=== PATIENT | male | born 1935 | race African-American/Black ===

== ENCOUNTER 2016-05-08 11:39 | Emergency (ER) | payer MEDICARE, MEDICAID ==
[~2016-05-08] VITALS: Ht 177.8 cm; Wt 81.6 kg
[2016-05-08] MEDS ORDERED: cefTRIAXone 1 GM in NS 55 ML IVPB ONE (12:30)
[2016-05-08 12:51] LABS: O2 CONTENT VENOUS 83.7
[2016-05-08] MEDS ORDERED: Tubing IV Secondary IV ONE (13:08)
[2016-05-08] MEDS ORDERED: Tubing IV Cassette IV ONE (13:08)
[2016-05-08] MEDS ORDERED: NS 55 ML IV ONE (13:08)
[2016-05-08 13:29] LABS: BASOPHILS % (AUTO) 1.2 % (0.0-2.0); EOSINOPHILS % (AUTO) 2.2 % (0.0-3.0); LYMPHOCYTES % (AUTO) 20.8 % (20.0-45.0); MEAN CORPUSCULAR HEMOGLOBIN 31.8 PG (27.0-31.0); MEAN CORPUSCULAR HGB CONC 30.5 G/DL (32.0-36.0); MEAN CORPUSCULAR VOLUME 104 FL (80-99); MEAN PLATELET VOLUME 5.8 FL (6.5-10.1); MONOCYTES % (AUTO) 11.3 % (1.0-10.0); NEUTROPHILS % (AUTO) 64.5 % (45.0-75.0); PLATELET COUNT 249 K/UL (150-450); RED BLOOD COUNT 2.86 M/UL (4.70-6.10); RED CELL DISTRIBUTION WIDTH 12.5 % (11.6-14.8); WHITE BLOOD COUNT 6.5 K/UL (4.8-10.8)
[2016-05-08 13:30] VITALS: BP 132/81
[2016-05-08 13:44] LABS: ALANINE AMINOTRANSFERASE 9 U/L (3-41); ALBUMIN/GLOBULIN RATIO 0.7 (1.0-2.7); ANION GAP 18 (5-15); ASPARTATE AMINO TRANSFERASE 9 U/L (5-40); CALCIUM 8.7 mg/dL (8.6-10.2); CARBON DIOXIDE 18 mEQ/L (20-30); CHLORIDE 105 mEQ/L (98-107); HEMOLYSIS 1; POTASSIUM 5.9 mEQ/L (3.4-4.9); SODIUM 141 mEQ/L (135-145); TOTAL PROTEIN 7.7 g/dL (6.6-8.7)
--- NOTE | 2016-05-08 14:19 | Diagnostic Imaging Report ---
Indication: Left mastoiditis. External otitis Technique: Contiguous 5 mm thick transaxial imaging of the head obtained in a Siemens Sensation [address] scanner. Soft tissue and bone windows generated. Total Dose length Product (DLP): [address] Dose Index Volume (CTDIvol): 70.38 mGy Comparison: none Findings: There is mild prominence of the ventricles, basal cisterns, and cerebral sulci consistent with atrophy. Mild, nonspecific, white matter hypoattenuation is noted throughout the brain consistent with chronic small vessel disease. There is no midline shift, edema, acute hemorrhage, mass effect, or abnormal extra-axial fluid collections. Bones and extra osseous soft tissues are unremarkable. There is left mastoid opacification and ethmoid sinus opacification. Impression: No acute intracranial bleed, mass effect or edema. Mild atrophy of the brain. Nonspecific white matter hypoattenuation probably due to chronic small vessel disease. Left mastoiditis and sinusitis The CT scanner at [facility] is accredited by the [employer] and the scans are performed using protocols designed to limit radiation exposure to as low as reasonably achievable to attain images of sufficient resolution adequate for diagnostic evaluation.
[2016-05-08] MEDS ORDERED: ASPIRIN81 MG ORAL (15:44)
[2016-05-08] MEDS ORDERED: CARBAMAZEPINE300 MG ORAL (15:44)
[2016-05-08] MEDS ORDERED: ATIVAN1 MG ORAL (15:44)
[2016-05-08] MEDS ORDERED: ATENOLOL100 MG ORAL (15:44)
[2016-05-08] MEDS ORDERED: ACETAMINOP500 MG/51 ORAL (15:44)
[2016-05-08] MEDS ORDERED: COMBIGAN EYE DRO5 ML OP (15:48)
[2016-05-08] MEDS ORDERED: DOCUSATE SODIU100 MG ORAL (15:48)
[2016-05-08] MEDS ORDERED: CORTISPORIN EAR10 ML LEFT EAR (15:48)
[2016-05-08] MEDS ORDERED: FERROUS SULFAT325 MG ORAL (15:50)
[2016-05-08] MEDS ORDERED: EPOGEN4000 UNIT/ SUBQ (15:50)
[2016-05-08] MEDS ORDERED: TRUSOPT10 ML BOTH EYES (15:50)
[2016-05-08] MEDS ORDERED: PROSCAR5 MG ORAL (15:50)
[2016-05-08] MEDS ORDERED: LEVAQUIN500 MG ORAL (15:51)
[2016-05-08] MEDS ORDERED: HYDRALAZINE HCL50 MG ORAL (15:51)
[2016-05-08] MEDS ORDERED: LATANOPROST2.5 ML BOTH EYES (15:51)
[2016-05-08] MEDS ORDERED: MULTIPLE VITAM1 EAC5 PO (15:53)
[2016-05-08] MEDS ORDERED: OMEPRAZOLE20 M3 ORAL (15:53)
[2016-05-08] MEDS ORDERED: NIFEDIPINE ER30 MG ORAL (15:53)
[2016-05-08] MEDS ORDERED: FLOMAX0.4 MG ORAL (15:53)
[2016-05-08] MEDS ORDERED: RISPERDAL1 MG PO (15:53)
--- NOTE | 2016-05-08 16:16 | Emergency Room Report ---
History of Present Illness General Chief Complaint: Fever Source: Medical Record Present Illness HPI [facility] for complaint of fever, possible cough, drainage from the left ear. Times today's. Patient's primary care doctor, Dr. Armendariz, reported that the patient was notably febrile to 100.4 yesterday. And he had some ear drainage. The patient received by mouth antibiotics times one dose, Levaquin. The patient's baseline is significant psychiatric, schizophrenia with severe renal dysfunction and anemia. He himself does not complain of significant abnormalities, he does describe some pain in his left ear. Denies chest pain, shortness of breath. Allergies: Coded Allergies: No Known Allergies (Unverified , 05/08/16) Patient History Past Medical History: see triage record, dementia, psych hx, renal disease PSxH Narrative patient is in SNF psychiatric facility at baseline Social History: Denies: alcohol use, drug use, smoking Immunizations: UTD Reviewed Nursing Documentation: PMH: Agreed Nursing Documentation-PMH Past Medical History: No History, Except For Hx Cardiac Problems: Yes Hx Hypertension: Yes Hx Pacemaker: No - CKD, ANEMIA, BPH, GLAUCOMA, Hx Gastrointestinal Problems: Yes - PEPTIC ULCER Review of Systems Constitutional: Reports: fever ENT: Reports: ear discharge All Other Systems: limited - patient is not good historian Physical Exam Vital Signs Date Time Temp Pulse Resp B/P Pulse Ox O2 Delivery O2 Flow Rate FiO2 05/08/16 11:50 98.4 63 18 182/87 96 Room Air Sp02 EP Interpretation: reviewed General Appearance: alert, cachetic, thin, Chronically Ill Eyes: bilateral eye PERRL ENT: other - significant purulent and bloody discharge from the left ear. TM obscured by Debri Neck: supple, thyroid normal Respiratory: chest non-tender, lungs clear, normal breath sounds Cardiovascular #1: regular rate, rhythm, no edema Gastrointestinal: non tender, soft, no mass Genitourinary: no CVA tenderness Musculoskeletal: back normal Neurologic: alert, responsive, telesales team leader III-XII nml as tested, motor weakness, other - patient does have signs of contracture in upper extemities Medical Decision Making Diagnostic Impression: Primary Impression: Fever Additional Impressions: mastoiditis sinusitis otitis media Hyperkalemia Dehydration Anemia Chronic renal disease, stage 4, severely decreased glomerular filtration rate ( GFR) between 15-29 mL/min/1.73 square meter ER Course Patient evaluated by myself and noted significant drainage from left ear. CT scan of the head was performed which did demonstrate sinusitis, mastoiditis. Blood work was evaluated and I noted significant renal dysfunction with mild hyperkalemia. Patient received IV ceftriaxone in the emergency department as well as IV fluids for rehydration. I spoke twice with Dr. Armendariz, his on-call primary DrRicky who was familiar with the patient. He states patient's renal status is stable to include intermittent hyperkalemia. He appreciates the IV antibiotics and IV fluids. He feels that the patient would be safe for continued treatment at his jail facility with IV antibiotics which is itchy the bullet that facility. Patient be transferred back to the facility with IV in place. Laboratory Tests Test 05/08/16 12:40 05/08/16 12:45 White Blood Count 6.5 K/UL (4.8-10.8) Red Blood Count 2.86 M/UL (4.70-6.10) L Hemoglobin 9.1 G/DL (14.2-18.0) L Hematocrit 29.8 % (42.0-52.0) L Mean Corpuscular Volume 104 FL (80-99) H Mean Corpuscular Hemoglobin 31.8 PG (27.0-31.0) H Mean Corpuscular Hemoglobin Concent 30.5 G/DL (32.0-36.0) L Red Cell Distribution Width 12.5 % (11.6-14.8) Platelet Count 249 K/UL (150-450) Mean Platelet Volume 5.8 FL (6.5-10.1) L Neutrophils (%) (Auto) 64.5 % (45.0-75.0) Lymphocytes (%) (Auto) 20.8 % (20.0-45.0) Monocytes (%) (Auto) 11.3 % (1.0-10.0) H Eosinophils (%) (Auto) 2.2 % (0.0-3.0) Basophils (%) (Auto) 1.2 % (0.0-2.0) Sodium Level 141 mEQ/L (135-145) Potassium Level 5.9 mEQ/L (3.4-4.9) H Chloride Level 105 mEQ/L (98-107) Carbon Dioxide Level 18 mEQ/L (20-30) L Anion Gap 18 (5-15) H Blood Urea Nitrogen 68 mg/dL (7-23) H Creatinine 4.0 mg/dL (0.7-1.2) H Estimat Glomerular Filtration Rate mL/min (>60) Glucose Level 96 mg/dL (74-106) Calcium Level 8.7 mg/dL (8.6-10.2) Total Bilirubin 0.2 mg/dL (0.0-1.2) Aspartate Amino Transf (AST/SGOT) 9 U/L (5-40) Alanine Aminotransferase (ALT/SGPT) 9 U/L (3-41) Alkaline Phosphatase 68 U/L (40-129) Total Protein 7.7 g/dL (6.6-8.7) Albumin 3.3 g/dL (3.5-5.2) L Globulin 4.4 g/dL Albumin/Globulin Ratio 0.7 (1.0-2.7) L Venous Blood pH Pending Venous Blood Partial Pressure CO2 Pending Venous Blood Partial Pressure O2 Pending Venous Blood HCO3 Pending Venous Blood Total Carbon Dioxide Pending Venous Bld O2 Saturation (Measured) 83.7 Venous Blood Oxygen Saturation Pending Venous Blood Base Excess Pending Methemoglobin 0.4 Sodium (Blood Gas) Pending Rhythm Strip Diag. Results Rhythm Strip Time: 12:55 EP Interpretation: yes Rate: 88 Rhythm: NSR, no PVC's, no ectopy Chest X-Ray Diagnostic Results Time: 14:30 Findings: no consolidation, no effusion, no pneumothorax Number of Views: 1 CT/MRI/US Diagnostic Results CT/MRI/US Diagnostic Results : Imaging Test Ordered: cT brain, auditory canal Impression CT read as no acute intercranial process, noted sinusitis on left, mastoiditis on left. Reevaluation Time: 15:30 Last Vital Signs Date Time Temp Pulse Resp B/P Pulse Ox O2 Delivery O2 Flow Rate FiO2 05/08/16 13:30 93 20 132/81 95 Room Air 05/08/16 12:00 98.1 Status: improved Disposition: XFER SNF Condition: Stable Referrals: ABBY ROSS (PCP) Patient Instructions: Sinusitis, Adult, [id number], Fever, Adult, Mastoiditis , Pediatric Additional Instructions: Please followup with primary doctor for continued treatment. Brigido Buck MD May 08, 2016 16:16
[2016-05-08 16:29] VITALS: BP 161/88
--- NOTE | 2016-05-08 17:12 | Diagnostic Imaging Report ---
Indication: Chest Pain Comparison: None A single view chest radiograph was obtained. Findings: Cardiomediastinal appearance is within normal limits for age. Pulmonary vascularity is appropriate. The diaphragmatic contour is smooth and costophrenic angles are sharp. No pleural effusions are identified. The bones are unremarkable. Impression: No acute findings
[2016-05-08 17:48] VITALS: BP 168/72
[2016-05-08 17:52] VITALS: BP 168/72
--- NOTE | 2016-06-13 09:49 | Diagnostic Imaging Report ---
Indication: Left mastoiditis and infection Technique: Continuous helical transaxial imaging of the temporal bones. No IV contrast was administered. High resolution coronal and axial 2-D reformats were also obtained. Study obtained in a Siemens sensation [address] Total Dose length Product (DLP): [address] Dose Index Volume (CTDIvol): 44 mGy Comparison: None Findings: There is abnormal opacification of the left external auditory canal. The tympanic membrane is not seen. Findings may be on the basis of external otitis infection. There is also extensive opacification of the left mastoid air cells. Findings consistent with an acute left mastoiditis. In addition there is abnormal opacification of the middle ear canal, likely fluid surrounding the ossicles and consistent with otitis media there is no ossicle erosion or other osseous erosion. The scutum is intact. The in a year structures are normal including the vestibule, semicircular canals, cochlea. IAC canal, facial nerve canal, carotid and jugular fossa is appear normal. TMJ is unremarkable. Limited evaluation of the right ureter is unremarkable. Impression: Left otitis media and acute mastoiditis. Insertion of external otitis as well given opacification of the external canal. These correlate clinically. .
== END 2016-05-08 17:52 ==
LOC: EDBD 11:39 → EDUNIT# 11:39 → EMR 12:50
DX: R50.9 Fever, unspecified (principal); H70.92 Unspecified mastoiditis, left ear; J01.90 Acute sinusitis, unspecified; H66.90 Otitis media, unspecified, unspecified ear; E87.5 Hyperkalemia; E86.0 Dehydration; D64.9 Anemia, unspecified; N18.4 Chronic kidney disease, stage 4 (severe); Z87.11 Personal history of peptic ulcer disease; I10 Essential (primary) hypertension
CPT/HCPCS: 36415; 70450; 70480; 71010; 80053; 85025; 96360; 96361; 96374; 99284; J0696

== ENCOUNTER 2016-05-21 20:19 | Inpatient (IN) | payer MEDICAID, MEDICARE ==
[~2016-05-21] VITALS: Ht 172.7 cm; Wt 71.7 kg
[~2016-05-21 20:19] MED LIST: ACETAMINOP500 MG/51 ORAL; ASPIRIN81 MG ORAL; ATENOLOL100 MG ORAL; ATIVAN1 MG ORAL; CARBAMAZEPINE300 MG ORAL; COMBIGAN EYE DRO5 ML OP; CORTISPORIN EAR10 ML LEFT EAR; DOCUSATE SODIU100 MG ORAL; EPOGEN4000 UNIT/ SUBQ; FERROUS SULFAT325 MG ORAL; FLOMAX0.4 MG ORAL; HYDRALAZINE HCL50 MG ORAL; LATANOPROST2.5 ML BOTH EYES; LEVAQUIN500 MG ORAL; MULTIPLE VITAM1 EAC5 PO; NIFEDIPINE ER30 MG ORAL; OMEPRAZOLE20 M3 ORAL; PROSCAR5 MG ORAL; RISPERDAL1 MG PO; TRUSOPT10 ML BOTH EYES
[2016-05-21 20:25] VITALS: BP 158/81
--- NOTE | 2016-05-21 20:58 | Emergency Room Report ---
History of Present Illness General Chief Complaint: Abnormal Labs Source: Patient, EMS Present Illness HPI Patient was sent in from nursing facility with complaints of low hemoglobin count Patient has been generally weak He has underlying dementia and not appropriate historian This does limit the history of present illness significantly There is no reports of vomiting or diarrhea No reports of any blood in the stool Patient himself denies any abdominal pain at this time unknown regarding previous transfusions Allergies: Coded Allergies: No Known Allergies (Unverified , 05/08/16) Patient History Past Medical History: see triage record Pertinent Family History: none Reviewed Nursing Documentation: PMH: Agreed, PSxH: Agreed Nursing Documentation-PMH Hx Cardiac Problems: Yes Hx Hypertension: Yes Hx Pacemaker: No - CKD, ANEMIA, BPH, GLAUCOMA, Hx Gastrointestinal Problems: Yes - PEPTIC ULCER Review of Systems All Other Systems: limited - Other than the ones mentioned in the history of present illness all others are reviewed however they do stay limited due to the patient's mental status Physical Exam Vital Signs Date Time Temp Pulse Resp B/P Pulse Ox O2 Delivery O2 Flow Rate FiO2 05/21/16 20:08 97.9 78 16 158/81 98 Room Air Sp02 EP Interpretation: reviewed, normal General Appearance: no apparent distress Head: normocephalic, atraumatic Eyes: bilateral eye EOMI, bilateral eye PERRL ENT: hearing grossly normal, normal pharynx Neck: full range of motion, supple Respiratory: lungs clear, normal breath sounds Cardiovascular #1: normal peripheral pulses, regular rate, rhythm Gastrointestinal: non tender, soft Genitourinary: no CVA tenderness Musculoskeletal: normal inspection Neurologic: alert, responsive - Patient has some rambling of thought process Psychiatric: mood/affect normal Skin: normal color, no rash Medical Decision Making Diagnostic Impression: Primary Impression: Anemia in chronic kidney disease Additional Impression: CKD (chronic kidney disease) stage 5, GFR less than 15 ml/min ER Course The patient's history examined the presentation Patient is felt to be complex requiring blood work and imaging Patient's hemoglobin count is found to be dangerously low especially given the patient's symptomatic presentation and at this time admitted for further inpatient care Labs Test 05/22/16 11:29 05/22/16 17:00 05/23/16 06:55 05/23/16 14:39 White Blood Count 4.2 K/UL (4.8-10.8) Red Blood Count 2.52 M/UL (4.70-6.10) Hemoglobin 8.1 G/DL (14.2-18.0) Hematocrit 26.2 % (42.0-52.0) Mean Corpuscular Volume 104 FL (80-99) Mean Corpuscular Hemoglobin 32.0 PG (27.0-31.0) Mean Corpuscular Hemoglobin Concent 30.7 G/DL (32.0-36.0) Red Cell Distribution Width 13.7 % (11.6-14.8) Platelet Count 372 K/UL (150-450) Mean Platelet Volume 4.6 FL (6.5-10.1) Neutrophils (%) (Auto) 57.7 % (45.0-75.0) Lymphocytes (%) (Auto) 28.9 % (20.0-45.0) Monocytes (%) (Auto) 9.7 % (1.0-10.0) Eosinophils (%) (Auto) 2.2 % (0.0-3.0) Basophils (%) (Auto) 1.6 % (0.0-2.0) Sodium Level 138 mEQ/L (135-145) 142 mEQ/L (135-145) Potassium Level 5.5 mEQ/L (3.4-4.9) 5.3 mEQ/L (3.4-4.9) Chloride Level 104 mEQ/L (98-107) 109 mEQ/L (98-107) Carbon Dioxide Level 18 mEQ/L (20-30) 19 mEQ/L (20-30) Anion Gap 16 (5-15) 14 (5-15) Blood Urea Nitrogen 64 mg/dL (7-23) 57 mg/dL (7-23) Creatinine 3.7 mg/dL (0.7-1.2) 3.4 mg/dL (0.7-1.2) Estimat Glomerular Filtration Rate mL/min (>60) mL/min (>60) Glucose Level 113 mg/dL (74-106) 97 mg/dL (74-106) Hemoglobin A1c 4.7 % (< 6.0) Calcium Level 8.1 mg/dL (8.6-10.2) 7.7 mg/dL (8.6-10.2) Total Bilirubin < 0.2 mg/dL (0.0-1.2) < 0.2 mg/dL (0.0-1.2) Aspartate Amino Transf (AST/SGOT) 10 U/L (5-40) 11 U/L (5-40) Alanine Aminotransferase (ALT/SGPT) 7 U/L (3-41) 6 U/L (3-41) Alkaline Phosphatase 75 U/L (40-129) 67 U/L (40-129) Total Protein 6.9 g/dL (6.6-8.7) 6.3 g/dL (6.6-8.7) Albumin 3.0 g/dL (3.5-5.2) 2.8 g/dL (3.5-5.2) Globulin 3.9 g/dL 3.5 g/dL Albumin/Globulin Ratio 0.7 (1.0-2.7) 0.8 (1.0-2.7) Urine Random Sodium 67 mmol/L Urine Creatinine 53.5 mg/dL Pro-B-Type Natriuretic Peptide 1197 pg/mL (0-450) Iron Level 112 ug/dL (59-158) Total Iron Binding Capacity 164 ug/dL (250-400) Percent Iron Saturation 68 % (15-50) Unsaturated Iron Binding 52 ug/dL (112-346) Test 05/23/16 16:20 05/24/16 06:45 05/24/16 08:10 Stool Occult Blood Negative (NEGATIVE) Sodium Level 140 mEQ/L (135-145) Potassium Level 5.1 mEQ/L (3.4-4.9) Chloride Level 105 mEQ/L (98-107) Carbon Dioxide Level 20 mEQ/L (20-30) Anion Gap 15 (5-15) Blood Urea Nitrogen 49 mg/dL (7-23) Creatinine 2.9 mg/dL (0.7-1.2) Estimat Glomerular Filtration Rate mL/min (>60) Glucose Level 93 mg/dL (74-106) Calcium Level 7.7 mg/dL (8.6-10.2) Total Bilirubin < 0.2 mg/dL (0.0-1.2) Aspartate Amino Transf (AST/SGOT) 11 U/L (5-40) Alanine Aminotransferase (ALT/SGPT) 6 U/L (3-41) Alkaline Phosphatase 69 U/L (40-129) Total Protein 6.0 g/dL (6.6-8.7) Albumin 2.5 g/dL (3.5-5.2) Globulin 3.5 g/dL Albumin/Globulin Ratio 0.7 (1.0-2.7) White Blood Count 4.3 K/UL (4.8-10.8) Red Blood Count 2.29 M/UL (4.70-6.10) Hemoglobin 7.4 G/DL (14.2-18.0) Hematocrit 23.6 % (42.0-52.0) Mean Corpuscular Volume 103 FL (80-99) Mean Corpuscular Hemoglobin 32.2 PG (27.0-31.0) Mean Corpuscular Hemoglobin Concent 31.2 G/DL (32.0-36.0) Red Cell Distribution Width 13.6 % (11.6-14.8) Platelet Count 303 K/UL (150-450) Mean Platelet Volume 4.4 FL (6.5-10.1) Neutrophils (%) (Auto) % (45.0-75.0) Lymphocytes (%) (Auto) % (20.0-45.0) Monocytes (%) (Auto) % (1.0-10.0) Eosinophils (%) (Auto) % (0.0-3.0) Basophils (%) (Auto) % (0.0-2.0) Differential Total Cells Counted 100 Neutrophils % (Manual) 69 % (45-75) Lymphocytes % (Manual) 22 % (20-45) Monocytes % (Manual) 7 % (1-10) Eosinophils % (Manual) 1 % (0-3) Basophils % (Manual) 1 % (0-2) Band Neutrophils 0 % (0-8) Platelet Estimate Adequate Platelet Morphology Normal Hypochromasia 3+ Anisocytosis 1+ Macrocytosis 1+ EKG Diagnostic Results Rate: normal Rhythm: NSR ST Segments: no acute changes Rhythm Strip Diag. Results EP Interpretation: yes Rate: 67 Rhythm: NSR, no PVC's, no ectopy Last Vital Signs Date Time Temp Pulse Resp B/P Pulse Ox O2 Delivery O2 Flow Rate FiO2 05/21/16 20:25 97.9 84 16 158/81 98 Room Air Status: improved Disposition: ADMITTED INPATIENT Condition: Serious Referrals: ABBY ROSS (PCP) KAVIN DUQUE D.O. May 21, 2016 20:58
[2016-05-21 21:31] LABS: BASOPHILS % (AUTO) 1.6 % (0.0-2.0); EOSINOPHILS % (AUTO) 1.7 % (0.0-3.0); MEAN CORPUSCULAR HEMOGLOBIN 33.1 PG (27.0-31.0); MEAN CORPUSCULAR HGB CONC 31.5 G/DL (32.0-36.0); MEAN CORPUSCULAR VOLUME 105 FL (80-99); MEAN PLATELET VOLUME 4.7 FL (6.5-10.1); MONOCYTES % (AUTO) 10.6 % (1.0-10.0); NEUTROPHILS % (AUTO) 57.2 % (45.0-75.0); PLATELET COUNT 371 K/UL (150-450); RED BLOOD COUNT 2.51 M/UL (4.70-6.10); RED CELL DISTRIBUTION WIDTH 13.3 % (11.6-14.8); WHITE BLOOD COUNT 6.3 K/UL (4.8-10.8)
[2016-05-21 21:38] LABS: INR 1.1 (0.9-1.1); PROTHROMBIN TIME 10.8 SEC (9.30-11.50)
[2016-05-21 21:40] LABS: ALANINE AMINOTRANSFERASE 8 U/L (3-41); ALBUMIN/GLOBULIN RATIO 0.7 (1.0-2.7); ANION GAP 19 (5-15); ASPARTATE AMINO TRANSFERASE 11 U/L (5-40); CALCIUM 8.1 mg/dL (8.6-10.2); CARBON DIOXIDE 16 mEQ/L (20-30); CHLORIDE 101 mEQ/L (98-107); HEMOLYSIS 4; POTASSIUM 5.4 mEQ/L (3.4-4.9); SODIUM 136 mEQ/L (135-145); TOTAL PROTEIN 7.7 g/dL (6.6-8.7); TROPONIN I < 0.30 ng/mL (<=0.30)
[2016-05-21 21:50] LABS: CKMB 2.3 ng/mL (< 6.7)
[2016-05-21 22:43] VITALS: BP 147/83
[2016-05-22] VITALS (8 sets, daily range): BP systolic 129–159; BP diastolic 67–90
[2016-05-22] MEDS ORDERED: LORazepam 1mg tab ORAL PRN (03:45)
[2016-05-22] MEDS: NovoLOG Insulin Flexpen SUBQ SCH ×4 (06:01→20:18)
[2016-05-22] MEDS: Cefepime 500mg in D5W 55ml IVPB SCH (08:47)
[2016-05-22] MEDS: Heparin 5000 units/ml inj SUBQ SCH ×2 (08:48→20:15)
[2016-05-22] MEDS: Multivitamin w/Minerals tab ORAL SCH (08:48)
[2016-05-22] MEDS: HydrALAZINE 50mg tab ORAL SCH ×2 (08:49→20:15)
[2016-05-22] MEDS: Aspirin Baby 81mg ORAL SCH (08:49)
[2016-05-22] MEDS: Tamsulosin 0.4mg cap ORAL SCH (08:49)
[2016-05-22] MEDS ORDERED: Cefepime HCl 1 GM in D5W 55 ML IVPB SCH (09:00)
[2016-05-22] MEDS ORDERED: Levofloxacin 500mg tab ORAL SCH (09:00)
[2016-05-22] MEDS: Dorzolamide 2% Btl BOTH EYES SCH ×2 (09:49→17:17)
[2016-05-22 11:45] LABS: BASOPHILS % (AUTO) 1.6 % (0.0-2.0); EOSINOPHILS % (AUTO) 2.2 % (0.0-3.0); LYMPHOCYTES % (AUTO) 28.9 % (20.0-45.0); MEAN CORPUSCULAR HGB CONC 30.7 G/DL (32.0-36.0); MEAN CORPUSCULAR VOLUME 104 FL (80-99); MEAN PLATELET VOLUME 4.6 FL (6.5-10.1); MONOCYTES % (AUTO) 9.7 % (1.0-10.0); NEUTROPHILS % (AUTO) 57.7 % (45.0-75.0); PLATELET COUNT 372 K/UL (150-450); RED BLOOD COUNT 2.52 M/UL (4.70-6.10); RED CELL DISTRIBUTION WIDTH 13.7 % (11.6-14.8); WHITE BLOOD COUNT 4.2 K/UL (4.8-10.8)
[2016-05-22 11:56] LABS: ALANINE AMINOTRANSFERASE 7 U/L (3-41); ALBUMIN/GLOBULIN RATIO 0.7 (1.0-2.7); ANION GAP 16 (5-15); ASPARTATE AMINO TRANSFERASE 10 U/L (5-40); CALCIUM 8.1 mg/dL (8.6-10.2); CARBON DIOXIDE 18 mEQ/L (20-30); CHLORIDE 104 mEQ/L (98-107); CREATININE 3.7 mg/dL (0.7-1.2); HEMOLYSIS 1; POTASSIUM 5.5 mEQ/L (3.4-4.9); SODIUM 138 mEQ/L (135-145); TOTAL PROTEIN 6.9 g/dL (6.6-8.7)
[2016-05-22] MEDS: Sodium Bicarbonate 50 ML in 1/2 NS 1000ml 1,000 ML IV SCH (13:40)
[2016-05-22] MEDS: carBAMazepine 200mg tab ORAL SCH ×2 (13:41→17:17)
--- NOTE | 2016-05-22 17:08 | History and Physical Report ---
DATE OF ADMISSION: 05/21/2016 CHIEF COMPLAINT: Abnormal laboratories. HISTORY OF PRESENT ILLNESS: The patient is an 80-year-old male. He has multiple medical problems including a prior history of chronic kidney disease, anemia, coronary artery disease, seizure disorder, BPH, and diabetes, who was transferred from a detention facility with complaints of abnormal hemoglobin. The patient was noted to be severely anemic. He was transferred to the emergency room for further evaluation. There are no reports of any bleeding. No melena. No hematemesis. No bright red blood per rectum. On evaluation in the emergency room, hemoglobin was 8.3. Coagulations are normal. Potassium 5.4, bicarbonate 16, BUN is 66, and creatinine 4. The patient has been typed and crossed and now admitted for further evaluation for anemia as well as acute renal failure. PAST MEDICAL HISTORY: As above. PAST SURGICAL HISTORY: Unknown. MEDICATIONS: Current medications reconciled and reviewed. ALLERGIES: None. SOCIAL HISTORY: There is no known history of tobacco, ethanol, or drugs. FAMILY HISTORY: None. REVIEW OF SYSTEMS: Unobtainable, as the patient is confused. PHYSICAL EXAMINATION: GENERAL: The patient is in no apparent distress. VITAL SIGNS: Temperature 97.5 degrees, blood pressure 159/72, pulse of 69, and respirations 14. HEART: Regular rate and rhythm. LUNGS: Clear. ABDOMEN: Soft, nontender and nondistended. EXTREMITIES: Without clubbing, cyanosis, or edema. LABORATORY AND DIAGNOSTIC DATA: Sodium 136, potassium 5.4, bicarbonate 16, BUN of 66, and creatinine was 4. White count 6, hemoglobin 8.3, hematocrit of 26.4, and platelet count of 371,000. ASSESSMENT: This is a elderly male with multiple health problems, admitted with complaints of anemia. 1. Anemia, unclear etiology, suspect secondary to chronic kidney disease, cannot rule out a gastrointestinal bleed. 2. Acute renal failure. 3. Diabetes. 4. Hypertension. 5. History of seizure disorder. PLAN: IV hydration. Check a renal ultrasound. Monitor hemoglobin and hematocrit. Check iron studies and stool for occult blood. Continue outpatient and cardiac regimen. We will followup. Morning laboratories are currently pending. Fausto Uomoto, M.D. DR: CATHRYN JOB#: [id number] CC:
[2016-05-22] MEDS: Iron Sucrose 100 MG in NS 55 ML IVPB SCH (21:20)
[2016-05-22] MEDS: Sodium Citrate 30ml ORAL SCH (21:32)
[2016-05-23] VITALS: BP 122/57
[2016-05-23] MEDS: Sodium Bicarbonate 50 ML in 1/2 NS 1000ml 1,000 ML IV SCH ×3 (00:28→21:40)
--- NOTE | 2016-05-23 00:28 | Consultation ---
DATE OF CONSULTATION: REFERRING PHYSICIAN: Fausto Garay M.D. REASON FOR CONSULTATION: Elevated BUN and creatinine. HISTORY OF PRESENT ILLNESS: The patient is a resident of an [facility], has poor memory, seizure disorder, and cognitive impairment. He apparently has chronic kidney disease and anemia and it is not clear what his baseline renal function is, he had admission on potassium 5.4, BUN 66, creatinine 4. Hemoglobin of 8.3. PAST SURGICAL HISTORY: The patient denies history of any surgeries. ALLERGIES: None known. PAST MEDICAL HISTORY: Includes hypertension, anemia, thrombocytopenia, renal atrophy, diabetes type 2, atherosclerotic heart disease, benign prostatic hypertrophy, epilepsy, schizoaffective disorder, dysphagia, glaucoma, osteoarthritis, cataract, aphthous ulcers. MEDICATIONS: On transfer from the facility reviewed. In the hospital record include the following: Acetaminophen, aspirin, atenolol, Combigan eyedrops, carbamazepine, DSS, Trusopt eyedrops, Epogen, ferrous sulfate, Proscar, hydralazine, Xalatan, levofloxacin, lorazepam, multivitamins, nifedipine, omeprazole, Risperdal, tamsulosin. REVIEW OF SYSTEMS: The patient is an accurate historian. PHYSICAL EXAMINATION: GENERAL: The patient is lying in bed, alert, in no acute distress. VITAL SIGNS: Temperature 97.5, pulse 64, respirations 19, blood pressure 129/67. HEENT: Head eyes, ears, nose, throat, sclerae are nonicteric. Ocular motions intact in all directions. Oral mucosa moist. NECK: No adenopathy. LUNGS: Clear. HEART: Regular rhythm. No murmur. ABDOMEN: Soft without organomegaly or masses. EXTREMITIES: No edema, cyanosis, or clubbing. Contractures of both knees. NEUROLOGIC: He has weakness in both legs. Ocular motions intact in all directions. Mildly symmetric. Tongue is midline. He moves arms bilaterally. He answers simple questions but is disoriented. LABORATORY DATA: Admission labs are as above. Repeat BUN 64, creatinine 3.7, today potassium is 5.5, CO2 was 18, glucose 113. Albumin is 3.0. Total CK is 118. Urine electrolytes and urinalysis pending. IMPRESSION: 1. Chronic kidney disease likely stage 4 or 5. 2. Anemia of renal disease on Epogen as an outpatient likely an adequate dose and inadequate iron replacement. 3. Hypertensive heart disease. 4. Diabetes type 2. 5. Epilepsy. 6. Bedridden status. PLAN: At this time, we will observe his response to hydration and laboratories in the [facility] have been requested. We will get Epogen, iron, and adjust doses of all medications for his current problem. He is a poor candidate for dialysis and need to reassess in view of his dementia. Rory Falcon M.D. DR: Ivette JOB#: [id number] CC:
[2016-05-23 04:00] VITALS: BP 142/83
[2016-05-23] MEDS: NovoLOG Insulin Flexpen SUBQ SCH ×4 (06:30→21:00)
[2016-05-23 08:12] LABS: ALANINE AMINOTRANSFERASE 6 U/L (3-41); ALBUMIN/GLOBULIN RATIO 0.8 (1.0-2.7); ANION GAP 14 (5-15); ASPARTATE AMINO TRANSFERASE 11 U/L (5-40); CALCIUM 7.7 mg/dL (8.6-10.2); CARBON DIOXIDE 19 mEQ/L (20-30); CHLORIDE 109 mEQ/L (98-107); CREATININE 3.4 mg/dL (0.7-1.2); HEMOLYSIS 0; POTASSIUM 5.3 mEQ/L (3.4-4.9); SODIUM 142 mEQ/L (135-145); TOTAL PROTEIN 6.3 g/dL (6.6-8.7)
[2016-05-23 08:15] VITALS: BP 112/60
[2016-05-23] MEDS: HydrALAZINE 50mg tab ORAL SCH ×2 (09:00→21:46)
[2016-05-23] MEDS: Aspirin Baby 81mg ORAL SCH (10:15)
[2016-05-23] MEDS: Sodium Citrate 30ml ORAL SCH ×3 (10:15→17:41)
[2016-05-23] MEDS: Dorzolamide 2% Btl BOTH EYES SCH ×2 (10:16→17:40)
[2016-05-23] MEDS: Tamsulosin 0.4mg cap ORAL SCH (10:16)
[2016-05-23] MEDS: carBAMazepine 200mg tab ORAL SCH ×3 (10:16→17:42)
[2016-05-23] MEDS: Multivitamin w/Minerals tab ORAL SCH (10:16)
[2016-05-23] MEDS: Heparin 5000 units/ml inj SUBQ SCH ×2 (10:19→21:53)
[2016-05-23] MEDS: Cefepime 500mg in D5W 55ml IVPB SCH (10:33)
--- NOTE | 2016-05-23 11:19 | Diagnostic Imaging Report ---
Indication: Acute renal failure Technique: Grayscale and duplex images of the kidneys, retroperitoneum, and bladder were obtained. Comparison:None Findings: Exam is somewhat limited as patient is contracted. Right kidney measures 9.7 cm in length. Left kidney measures 8.4 cm in length. Both kidneys demonstrate mildly increased echogenicity. No hydronephrosis. No focal abnormality. Normal inferior vena cava. Bladder is normal. Impression: Negative arthrosis Mildly increased bilateral renal echogenicity, likely medical renal disease.
[2016-05-23 11:41] VITALS: BP 128/80
--- NOTE | 2016-05-23 13:53 | General Progress Note ---
Assessment/Plan Problem List: (1) Acute renal failure ICD Codes: N17.9 - Acute kidney failure, unspecified SNOMED: 72508951 (2) Anemia ICD Codes: D64.9 - Anemia, unspecified SNOMED: 310838081 (3) Fever ICD Codes: R50.9 - Fever, unspecified SNOMED: 989969663 (4) Abnormal laboratory test result ICD Codes: R89.9 - Unspecified abnormal finding in specimens from other organs , systems and tissues SNOMED: 103113097 Status: stable, progressing Assessment/Plan ivf monitor renal fxn monitor h/h check iron panel and stool ob. Subjective ROS Limited/Unobtainable: No Constitutional: Reports: malaise, weakness HEENT: Reports: no symptoms Cardiovascular: Reports: no symptoms Respiratory: Reports: no symptoms Gastrointestinal/Abdominal: Reports: no symptoms Genitourinary: Reports: no symptoms Neurologic/Psychiatric: Reports: no symptoms Endocrine: Reports: no symptoms Hematologic/Lymphatic: Reports: anemia Allergies: Coded Allergies: No Known Allergies (Unverified , 05/08/16) All Systems: reviewed and negative except above Subjective no complaints. no chest pain no sob. us negative. mild improvement in renal fxn. Objective Last 24 Hour Vital Signs Date Time Temp Pulse Resp B/P Pulse Ox O2 Delivery O2 Flow Rate FiO2 05/23/16 11:41 98.1 65 21 128/80 95 Room Air 05/23/16 10:17 72 112/60 05/23/16 09:00 112/60 05/23/16 09:00 72 112/60 05/23/16 08:15 97.9 72 20 112/60 100 Room Air 05/23/16 04:00 97.7 77 20 142/83 98 Room Air 05/23/16 00:00 97.9 64 20 122/57 96 Room Air 05/22/16 20:15 129/67 05/22/16 19:00 98.0 68 20 131/69 98 Room Air 05/22/16 16:00 97.5 64 19 129/67 100 Room Air 05/22/16 16:00 97.5 64 19 129/67 98 Room Air Bad tableLaboratory Tests 05/22/16 17:00: Urine Osmolality [Pending], Urine Random Sodium 67, Urine Creatinine 53.5 05/23/16 06:55: Sodium Level 142, Potassium Level 5.3H, Chloride Level 109H, Carbon Dioxide Level 19L, Anion Gap 14, Blood Urea Nitrogen 57H, Creatinine 3.4H, Estimat Glomerular Filtration Rate , Glucose Level 97, Calcium Level 7.7L, Total Bilirubin < 0.2, Aspartate Amino Transf (AST/SGOT) 11, Alanine Aminotransferase (ALT/SGPT) 6, Alkaline Phosphatase 67, Pro-B-Type Natriuretic Peptide 1197H, Total Protein 6.3L, Albumin 2.8L, Globulin 3.5, Albumin/Globulin Ratio 0.8L Height (Feet): 5 Height (Inches): 8.00 Weight (Pounds): 158 General Appearance: WD/WN, alert Neck: supple Cardiovascular: regular rhythm Respiratory/Chest: lungs clear, normal breath sounds, no respiratory distress Abdomen: normal bowel sounds, non tender, soft, no organomegaly, no mass Edema: no edema noted Arm (L), no edema noted Arm (R), no edema noted Leg (L), no edema noted Leg (R), no edema noted Pedal (L), no edema noted Pedal (R), no edema noted Generalized Neurologic: graduate engineer II-XII grossly normal, alert, oriented x 3, responsive CHUCK HAAS May 23, 2016 13:53
[2016-05-23 15:46] LABS: HEMOLYSIS 22; IRON 112 ug/dL (59-158); TOTAL IRON BINDING CAPACITY 164 ug/dL (250-400)
[2016-05-23 15:47] VITALS: BP 149/78
--- NOTE | 2016-05-23 16:07 | Nephrology Progress Note ---
Assessment/Plan Problem List: (1) Paraplegia (2) Epilepsy (3) Anemia in chronic kidney disease (4) CKD (chronic kidney disease) stage 5, GFR less than 15 ml/min Plan epogen and venofer, observe with hydration Subjective ROS Limited/Unobtainable: Yes Objective Objective Last 24 Hour Vital Signs Date Time Temp Pulse Resp B/P Pulse Ox O2 Delivery O2 Flow Rate FiO2 05/23/16 15:47 98.2 69 20 149/78 100 Room Air 05/23/16 11:41 98.1 65 21 128/80 95 Room Air 05/23/16 10:17 72 112/60 05/23/16 09:00 112/60 05/23/16 09:00 72 112/60 05/23/16 08:15 97.9 72 20 112/60 100 Room Air 05/23/16 04:00 97.7 77 20 142/83 98 Room Air 05/23/16 00:00 97.9 64 20 122/57 96 Room Air 05/22/16 20:15 129/67 05/22/16 19:00 98.0 68 20 131/69 98 Room Air Bad tableLaboratory Tests 05/22/16 17:00: Urine Osmolality [Pending], Urine Random Sodium 67, Urine Creatinine 53.5 05/23/16 06:55: Sodium Level 142, Potassium Level 5.3H, Chloride Level 109H, Carbon Dioxide Level 19L, Anion Gap 14, Blood Urea Nitrogen 57H, Creatinine 3.4H, Estimat Glomerular Filtration Rate , Glucose Level 97, Calcium Level 7.7L, Total Bilirubin < 0.2, Aspartate Amino Transf (AST/SGOT) 11, Alanine Aminotransferase (ALT/SGPT) 6, Alkaline Phosphatase 67, Pro-B-Type Natriuretic Peptide 1197H, Total Protein 6.3L, Albumin 2.8L, Globulin 3.5, Albumin/Globulin Ratio 0.8L 05/23/16 14:39: Iron Level 112, Total Iron Binding Capacity 164L, Percent Iron Saturation 68H, Unsaturated Iron Binding 52L Height (Feet): 5 Height (Inches): 8.00 Weight (Pounds): 158 General Appearance: no apparent distress, alert, confused EENT: normal ENT inspection Neck: normal alignment Cardiovascular: normal rate, regular rhythm Respiratory/Chest: lungs clear Abdomen: non tender Extremities: other - no edema Neurologic: [employer] member II-XII grossly normal XI FUENTES May 23, 2016 16:07
[2016-05-23 19:00] VITALS: BP 163/83
[2016-05-23] MEDS ORDERED: Epogen (for non ESRD use) SUBQ SCH ×2 (21:00)
[2016-05-23] MEDS: Iron Sucrose 100 MG in NS 55 ML IVPB SCH (21:42)
[2016-05-24] VITALS: BP 139/84
[2016-05-24 04:00] VITALS: BP 155/88
[2016-05-24] MEDS: NovoLOG Insulin Flexpen SUBQ SCH ×4 (06:30→22:57)
[2016-05-24] MEDS: Sodium Bicarbonate 50 ML in 1/2 NS 1000ml 1,000 ML IV SCH ×2 (06:51→17:36)
[2016-05-24 07:32] LABS: ALANINE AMINOTRANSFERASE 6 U/L (3-41); ALBUMIN/GLOBULIN RATIO 0.7 (1.0-2.7); ANION GAP 15 (5-15); ASPARTATE AMINO TRANSFERASE 11 U/L (5-40); CALCIUM 7.7 mg/dL (8.6-10.2); CARBON DIOXIDE 20 mEQ/L (20-30); CHLORIDE 105 mEQ/L (98-107); CREATININE 2.9 mg/dL (0.7-1.2); HEMOLYSIS 18; POTASSIUM 5.1 mEQ/L (3.4-4.9); SODIUM 140 mEQ/L (135-145)
--- NOTE | 2016-05-24 08:15 | General Progress Note ---
Assessment/Plan Problem List: (1) Acute renal failure ICD Codes: N17.9 - Acute kidney failure, unspecified SNOMED: 14997822 (2) Anemia ICD Codes: D64.9 - Anemia, unspecified SNOMED: 645303498 (3) Fever ICD Codes: R50.9 - Fever, unspecified SNOMED: 754053572 (4) Abnormal laboratory test result ICD Codes: R89.9 - Unspecified abnormal finding in specimens from other organs , systems and tissues SNOMED: 668904058 Status: stable, progressing Assessment/Plan ivf monitor renal fxn- improving monitor h/h follow up stool ob anemia - ?secondary to ckd +/- chronic disease Subjective ROS Limited/Unobtainable: No Constitutional: Reports: malaise, weakness HEENT: Reports: no symptoms Cardiovascular: Reports: no symptoms Respiratory: Reports: no symptoms Gastrointestinal/Abdominal: Reports: no symptoms Genitourinary: Reports: no symptoms Neurologic/Psychiatric: Reports: no symptoms Endocrine: Reports: no symptoms Hematologic/Lymphatic: Reports: anemia Allergies: Coded Allergies: No Known Allergies (Unverified , 05/08/16) All Systems: reviewed and negative except above Subjective no complaints. no chest pain renal infxn improving with hydration. stool ob pending. denies sob. Objective Last 24 Hour Vital Signs Date Time Temp Pulse Resp B/P Pulse Ox O2 Delivery O2 Flow Rate FiO2 05/24/16 04:00 98.8 76 18 155/88 100 Room Air 05/24/16 00:00 98.1 78 18 139/84 98 Room Air 05/23/16 21:46 163/83 05/23/16 19:00 97.7 64 20 163/83 98 Room Air 05/23/16 15:47 98.2 69 20 149/78 100 Room Air 05/23/16 11:41 98.1 65 21 128/80 95 Room Air 05/23/16 10:17 72 112/60 05/23/16 09:00 112/60 05/23/16 09:00 72 112/60 05/23/16 08:15 97.9 72 20 112/60 100 Room Air Intake and Output 05/23/16 05/24/16 19:00 07:00 Intake Total 1095 ml 920 ml Output Total 350 ml Balance 1095 ml 570 ml Intake Oral 440 ml 120 ml IV Total 655 ml 800 ml Other 350 ml # Voids 1 3 # Bowel Movements 3 Laboratory Tests 05/23/16 14:39: Iron Level 112, Total Iron Binding Capacity 164L, Percent Iron Saturation 68H, Unsaturated Iron Binding 52L 05/23/16 16:20: Stool Occult Blood [Pending] 05/24/16 06:45: Sodium Level 140, Potassium Level 5.1H, Chloride Level 105, Carbon Dioxide Level 20, Anion Gap 15, Blood Urea Nitrogen 49H, Creatinine 2.9H, Estimat Glomerular Filtration Rate , Glucose Level 93, Calcium Level 7.7L, Total Bilirubin < 0.2, Aspartate Amino Transf (AST/SGOT) 11, Alanine Aminotransferase (ALT/SGPT) 6, Alkaline Phosphatase 69, Total Protein 6.0L, Albumin 2.5L, Globulin 3.5, Albumin/Globulin Ratio 0.7L Height (Feet): 5 Height (Inches): 8.00 Weight (Pounds): 158 Objective General Appearance: WD/WN, alert Neck: supple Cardiovascular: regular rhythm Respiratory/Chest: lungs clear, normal breath sounds, no respiratory distress Abdomen: normal bowel sounds, non tender, soft, no organomegaly, no mass Edema: no edema noted Arm (L), no edema noted Arm (R), no edema noted Leg (L), no edema noted Leg (R), no edema noted Pedal (L), no edema noted Pedal (R), no edema noted 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
[2016-05-24 08:27] VITALS: BP 151/88
[2016-05-24 09:24] LABS: MEAN CORPUSCULAR HEMOGLOBIN 32.2 PG (27.0-31.0); MEAN CORPUSCULAR HGB CONC 31.2 G/DL (32.0-36.0); MEAN CORPUSCULAR VOLUME 103 FL (80-99); MEAN PLATELET VOLUME 4.4 FL (6.5-10.1); PLATELET COUNT 303 K/UL (150-450); RED BLOOD COUNT 2.29 M/UL (4.70-6.10); RED CELL DISTRIBUTION WIDTH 13.6 % (11.6-14.8); WHITE BLOOD COUNT 4.3 K/UL (4.8-10.8)
[2016-05-24] MEDS: Dorzolamide 2% Btl BOTH EYES SCH ×2 (10:27→19:33)
[2016-05-24] MEDS: Aspirin Baby 81mg ORAL SCH (10:28)
[2016-05-24] MEDS: HydrALAZINE 50mg tab ORAL SCH ×2 (10:29→22:55)
[2016-05-24] MEDS: Tamsulosin 0.4mg cap ORAL SCH (10:30)
[2016-05-24] MEDS: carBAMazepine 200mg tab ORAL SCH ×3 (10:30→19:34)
[2016-05-24] MEDS: Sodium Citrate 30ml ORAL SCH ×3 (10:31→19:34)
[2016-05-24] MEDS: Heparin 5000 units/ml inj SUBQ SCH ×2 (10:32→22:55)
[2016-05-24] MEDS: Multivitamin w/Minerals tab ORAL SCH (10:36)
[2016-05-24] MEDS: Cefepime 500mg in D5W 55ml IVPB SCH (10:36)
[2016-05-24 10:46] LABS: BASOPHILS % (MANUAL) 1 % (0-2); EOSINOPHILS % (MANUAL) 1 % (0-3); LYMPHOCYTES % (MANUAL) 22 % (20-45); NEUTROPHILS % (MANUAL) 69 % (45-75); TOTAL CELLS COUNTED 100
[2016-05-24 10:47] LABS: ANISOCYTOSIS 1+; BAND NEUTROPHILS % (MANUAL) 0 % (0-8); HYPOCHROMASIA 3+; MACROCYTES 1+; PLATELET ESTIMATE ADEQUATE
[2016-05-24 10:52] LABS: PLATELET MORPHOLOGY NORMAL
[2016-05-24 11:24] VITALS: BP 143/73
--- NOTE | 2016-05-24 14:07 | Cardiology Report ---
APPROVED REPORT EKG Measurement Heart [id number] Normal sinus rhythm Cannot rule out Anterior infarct, age undetermined Abnormal ECG
[2016-05-24 15:46] VITALS: BP 131/71
[2016-05-24 19:00] VITALS: BP 146/82
--- NOTE | 2016-05-24 22:06 | Nephrology Progress Note ---
Assessment/Plan Problem List: (1) Paraplegia (2) Epilepsy (3) Anemia in chronic kidney disease (4) CKD (chronic kidney disease) stage 5, GFR less than 15 ml/min Plan epogen and venofer, observe with hydration, downtrending bun and creatinine Subjective ROS Limited/Unobtainable: Yes Objective Objective Last 24 Hour Vital Signs Date Time Temp Pulse Resp B/P Pulse Ox O2 Delivery O2 Flow Rate FiO2 05/24/16 19:00 97.3 69 20 146/82 98 Room Air 05/24/16 15:46 97.5 69 20 131/71 98 Room Air 05/24/16 11:24 97.6 63 20 143/73 97 Room Air 05/24/16 10:30 79 151/88 05/24/16 10:29 151/88 05/24/16 10:29 79 151/88 05/24/16 08:27 97.9 79 20 151/88 97 Room Air 05/24/16 04:00 98.8 76 18 155/88 100 Room Air 05/24/16 00:00 98.1 78 18 139/84 98 Room Air Intake and Output 05/23/16 05/24/16 19:00 07:00 Intake Total 1095 ml 920 ml Output Total 350 ml Balance 1095 ml 570 ml Intake Oral 440 ml 120 ml IV Total 655 ml 800 ml Other 350 ml # Voids 1 3 # Bowel Movements 3 Laboratory Tests 05/24/16 06:45: Sodium Level 140, Potassium Level 5.1H, Chloride Level 105, Carbon Dioxide Level 20, Anion Gap 15, Blood Urea Nitrogen 49H, Creatinine 2.9H, Estimat Glomerular Filtration Rate , Glucose Level 93, Calcium Level 7.7L, Total Bilirubin < 0.2, Aspartate Amino Transf (AST/SGOT) 11, Alanine Aminotransferase (ALT/SGPT) 6, Alkaline Phosphatase 69, Total Protein 6.0L, Albumin 2.5L, Globulin 3.5, Albumin/Globulin Ratio 0.7L 05/24/16 08:10: White Blood Count 4.3L, Red Blood Count 2.29L, Hemoglobin 7.4L, Hematocrit 23.6L , Mean Corpuscular Volume 103H, Mean Corpuscular Hemoglobin 32.2H, Mean Corpuscular Hemoglobin Concent 31.2L, Red Cell Distribution Width 13.6, Platelet Count 303, Mean Platelet Volume 4.4L, Neutrophils (%) (Auto) , Lymphocytes (%) (Auto) , Monocytes (%) (Auto) , Eosinophils (%) (Auto) , Basophils (%) (Auto) , Differential Total Cells Counted 100, Neutrophils % ( Manual) 69, Lymphocytes % (Manual) 22, Monocytes % (Manual) 7, Eosinophils % ( Manual) 1, Basophils % (Manual) 1, Band Neutrophils 0, Platelet Estimate Adequate, Platelet Morphology Normal, Hypochromasia 3+, Anisocytosis 1+, Macrocytosis 1+ Height (Feet): 5 Height (Inches): 8.00 Weight (Pounds): 158 General Appearance: confused EENT: normal ENT inspection Neck: normal alignment Cardiovascular: normal rate, regular rhythm Respiratory/Chest: lungs clear Abdomen: soft, no organomegaly Extremities: trace edema Neurologic: motor weakness XI FUENTES May 24, 2016 22:06
[2016-05-24] MEDS: Iron Sucrose 100 MG in NS 55 ML IVPB SCH (22:54)
[2016-05-25] VITALS (7 sets, daily range): BP systolic 119–164; BP diastolic 61–93
--- NOTE | 2016-05-25 00:48 | Consultation ---
DATE OF CONSULTATION: 05/22/2016 CARDIOLOGY CONSULTATION: CONSULTING PHYSICIAN: Artem Byers M.D. REQUESTING PHYSICIAN: Fausto Garay M.D. REASON FOR CONSULTATION: Acute renal failure in the setting of hypertensive cardiomyopathy. HISTORY OF PRESENT ILLNESS: This is an 80-year-old male, residing at a [facility] facility. He was transferred to the emergency room for evaluation of abnormal laboratory studies. He was noted to have a history of hypertensive cardiomyopathy and congestive heart failure and I have been asked to address his current volume status and further management. PAST MEDICAL HISTORY: 1. Hypertension. 2. Hypertensive heart disease. 3. Diastolic dysfunction. 4. Coronary artery disease. 5. Anemia of chronic kidney disease. 6. Chronic kidney disease. 7. Seizure disorder. 8. Prostatic hypertrophy. 9. Cerebrovascular disease with dementia. MEDICATIONS: Reviewed and reconciled. ALLERGIES: None known. SOCIAL HISTORY: No record of smoking, alcohol, or substance abuse. FAMILY HISTORY: Noncontributory. REVIEW OF SYSTEMS: Not obtainable from the patient due to baseline dementia, however record review from the [facility] facility is performed and pertinent data has been outlined above. PHYSICAL EXAMINATION: GENERAL: The patient appears awake, alert, somewhat withdrawn, and in no acute distress. VITAL SIGNS: Blood pressure is 159/72, pulse 69, respiratory rate 14, and afebrile. HEENT: Conjunctivae are pink. Oropharynx is clear. NECK: Supple. Jugular venous pressure is normal. LUNGS: Clear. CARDIAC: Regular rhythm and rate. Normal S1 and S2 with a fourth heart sound. ABDOMEN: Soft and nontender. No hepatomegaly. EXTREMITIES: No edema. LABORATORY DATA: Sodium is 136, potassium 5.4, bicarbonate 16, BUN 66, and creatinine 4. White count is 6 and hemoglobin 8.3. DIAGNOSTIC DATA: EKG with sinus rhythm and possible anterior infarction of indeterminate age. Chest x-ray, no acute process. IMPRESSION: 1. Acute on chronic renal failure. 2. Acute on chronic anemia. 3. Chronic diastolic congestive heart failure. 4. Hypertensive heart disease. 5. Cerebrovascular disease with dementia. 6. Hyperkalemia. PLAN: 1. Hydrate with IV fluids. 2. Monitor cardiorenal parameters. 3. Trend natriuretic peptide assay. 4. Avoid angiotensin-converting enzyme inhibitors. 5. Deep venous thrombosis prophylaxis. 6. Renal ultrasound. 7. Echocardiogram. 8. Further recommendations to follow. Artem Byers M.D. DR: Neto JOB#: [id number] CC: ANTONIETA
--- NOTE | 2016-05-25 01:08 | Progress Note ---
DATE: 05/23/2016 CARDIOLOGY PROGRESS NOTE SUBJECTIVE: The patient is in no distress. He is more alert. He remains confused. OBJECTIVE: VITAL SIGNS: Blood pressure 128/80, pulse 65, and respirations 21. No fevers. HEENT: Capillary refill is slightly decreased. NECK: Supple. LUNGS: Clear. CARDIAC: Regular rhythm and rate. Normal S1 and S2 with a fourth heart sound. ABDOMEN: Soft. EXTREMITIES: With no edema. LABORATORY DATA: Sodium 142, potassium 5.3, bicarbonate 19, BUN 57, and creatinine 3.4. Pro-natriuretic peptide is 1197. Albumin is 2.8. IMPRESSION: 1. Acute on chronic renal injuries due to acute tubular necrosis. 2. Hyperkalemia. 3. Metabolic acidosis. 4. Moderate protein-calorie malnutrition. 5. Chronic diastolic congestive heart failure with elevated natriuretic peptide assay. 6. Hypertensive heart disease. 7. Cerebrovascular disease with dementia. PLAN: 1. Continue IV fluid hydration. 2. Protein supplement. 3. No role for diuretics. 4. Titrate antihypertensives and observe for orthostasis. 5. DVT prophylaxis. Artem Byers M.D. DR: DENA JOB#: [id number] CC:
--- NOTE | 2016-05-25 01:18 | Progress Note ---
DATE: 05/24/2016 CARDIOLOGY PROGRESS NOTE SUBJECTIVE: The patient is more alert. Baseline dementia noted. OBJECTIVE: VITAL SIGNS: Blood pressure 146/82, pulse 69, and respirations 20. NECK: Supple. LUNGS: Clear. CARDIAC: Regular rhythm and rate. Normal S1 and S2 with a fourth heart sound. ABDOMEN: Soft. EXTREMITIES: With trace edema. LABORATORY DATA: Iron panel yesterday was consistent with chronic disease. Sodium 140, potassium 5.1, BUN 49, creatinine 2.9, and bicarbonate 20. Albumin is 2.5. White count 4.3 and hemoglobin 7.4. IMPRESSION: 1. Anemia due to chronic kidney disease. 2. Acute on chronic renal failure, improving. 3. Chronic diastolic congestive heart failure. 4. Metabolic acidosis, recovering. 5. Severe protein-calorie malnutrition. 6. Hypertensive heart disease on multidrug regimen. PLAN: 1. Continue hydration. 2. Consider packed red blood cell transfusion. 3. Epogen therapy. 4. No diuresis. 5. Titrate antihypertensives. 6. Check stool occult blood test. 7. Monitor for orthostatic symptoms. Artem Byers M.D. DR: DENA JOB#: [id number] CC:
[2016-05-25] MEDS: Sodium Bicarbonate 50 ML in 1/2 NS 1000ml 1,000 ML IV SCH (04:07)
[2016-05-25] MEDS: NovoLOG Insulin Flexpen SUBQ SCH ×4 (06:30→20:16)
[2016-05-25 07:25] LABS: MEAN CORPUSCULAR HEMOGLOBIN 32.4 PG (27.0-31.0); MEAN CORPUSCULAR HGB CONC 30.8 G/DL (32.0-36.0); MEAN CORPUSCULAR VOLUME 105 FL (80-99); MEAN PLATELET VOLUME 4.7 FL (6.5-10.1); PLATELET COUNT 253 K/UL (150-450); RED BLOOD COUNT 2.09 M/UL (4.70-6.10); RED CELL DISTRIBUTION WIDTH 13.4 % (11.6-14.8); WHITE BLOOD COUNT 4.4 K/UL (4.8-10.8)
[2016-05-25 07:33] LABS: ANION GAP 13 (5-15); CALCIUM 7.6 mg/dL (8.6-10.2); CARBON DIOXIDE 25 mEQ/L (20-30); CHLORIDE 105 mEQ/L (98-107); CREATININE 2.8 mg/dL (0.7-1.2); HEMOLYSIS 0; POTASSIUM 5.3 mEQ/L (3.4-4.9); SODIUM 143 mEQ/L (135-145)
--- NOTE | 2016-05-25 08:20 | General Progress Note ---
Assessment/Plan Problem List: (1) Acute renal failure ICD Codes: N17.9 - Acute kidney failure, unspecified SNOMED: 24813254 (2) Anemia ICD Codes: D64.9 - Anemia, unspecified SNOMED: 356428040 (3) Fever ICD Codes: R50.9 - Fever, unspecified SNOMED: 807025777 (4) Abnormal laboratory test result ICD Codes: R89.9 - Unspecified abnormal finding in specimens from other organs , systems and tissues SNOMED: 101895778 Status: stable, progressing Assessment/Plan ivf monitor renal fxn- improving monitor h/h follow up stool ob anemia - ?secondary to ckd +/- chronic disease needs prbc transfusion today pt ok with it Subjective ROS Limited/Unobtainable: No Constitutional: Reports: malaise, weakness HEENT: Reports: no symptoms Cardiovascular: Reports: no symptoms Respiratory: Reports: no symptoms Gastrointestinal/Abdominal: Reports: no symptoms Genitourinary: Reports: no symptoms Neurologic/Psychiatric: Reports: no symptoms Endocrine: Reports: no symptoms Hematologic/Lymphatic: Reports: no symptoms Allergies: Coded Allergies: No Known Allergies (Unverified , 05/08/16) All Systems: reviewed and negative except above Subjective no complaints. no chest pain renal infxn improving with hydration. decrease h/h stool ob negative. no bleeding noted Objective Last 24 Hour Vital Signs Date Time Temp Pulse Resp B/P Pulse Ox O2 Delivery O2 Flow Rate FiO2 05/25/16 04:00 98.1 68 20 150/85 99 Room Air 05/25/16 00:00 98.2 77 20 140/76 98 Room Air 05/24/16 22:55 146/82 05/24/16 19:00 97.3 69 20 146/82 98 Room Air 05/24/16 15:46 97.5 69 20 131/71 98 Room Air 05/24/16 11:24 97.6 63 20 143/73 97 Room Air 05/24/16 10:30 79 151/88 05/24/16 10:29 151/88 05/24/16 10:29 79 151/88 05/24/16 08:27 97.9 79 20 151/88 97 Room Air Intake and Output 05/24/16 05/25/16 19:00 07:00 Intake Total 1505 ml 780 ml Output Total 500 ml 1250 ml Balance 1005 ml -470 ml Intake Oral 450 ml 120 ml IV Total 1055 ml 660 ml Output Urine Total 500 ml 1250 ml Laboratory Tests 05/25/16 05:00: White Blood Count 4.4L, Red Blood Count 2.09L, Hemoglobin 6.8*L, Hematocrit 22.0L, Mean Corpuscular Volume 105H, Mean Corpuscular Hemoglobin 32.4H, Mean Corpuscular Hemoglobin Concent 30.8L, Red Cell Distribution Width 13.4, Platelet Count 253, Mean Platelet Volume 4.7L, Neutrophils (%) (Auto) , Lymphocytes (%) (Auto) , Monocytes (%) (Auto) , Eosinophils (%) (Auto) , Basophils (%) (Auto) , Neutrophils % (Manual) [Pending], Lymphocytes % (Manual) [Pending], Platelet Estimate [Pending], Platelet Morphology [Pending], Sodium Level 143, Potassium Level 5.3H, Chloride Level 105, Carbon Dioxide Level 25, Anion Gap 13, Blood Urea Nitrogen 43H, Creatinine 2.8H, Estimat Glomerular Filtration Rate , Glucose Level 91, Calcium Level 7.6L Height (Feet): 5 Height (Inches): 8.00 Weight (Pounds): 158 Objective General Appearance: WD/WN, alert Neck: supple Cardiovascular: regular rhythm Respiratory/Chest: lungs clear, normal breath sounds, no respiratory distress Abdomen: normal bowel sounds, non tender, soft, no organomegaly, no mass Edema: no edema noted Arm (L), no edema noted Arm (R), no edema noted Leg (L), no edema noted Leg (R), no edema noted Pedal (L), no edema noted Pedal (R), no edema noted 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
[2016-05-25] MEDS: Heparin 5000 units/ml inj SUBQ SCH ×2 (09:00→20:01)
[2016-05-25] MEDS: Sodium Citrate 30ml ORAL SCH ×3 (09:02→17:02)
[2016-05-25] MEDS: carBAMazepine 200mg tab ORAL SCH ×3 (09:03→17:02)
[2016-05-25] MEDS: HydrALAZINE 50mg tab ORAL SCH ×2 (09:03→20:17)
[2016-05-25] MEDS: Aspirin Baby 81mg ORAL SCH (09:03)
[2016-05-25] MEDS: Tamsulosin 0.4mg cap ORAL SCH (09:03)
[2016-05-25] MEDS: Multivitamin w/Minerals tab ORAL SCH (09:03)
[2016-05-25] MEDS: Dorzolamide 2% Btl BOTH EYES SCH ×2 (09:04→17:03)
[2016-05-25] MEDS: Cefepime 500mg in D5W 55ml IVPB SCH (09:05)
[2016-05-25 11:25] LABS: BAND NEUTROPHILS % (MANUAL) 0 % (0-8); BASOPHILS % (MANUAL) 0 % (0-2); EOSINOPHILS % (MANUAL) 2 % (0-3); HYPOCHROMASIA 1+; LYMPHOCYTES % (MANUAL) 28 % (20-45); MACROCYTES 1+; NEUTROPHILS % (MANUAL) 60 % (45-75); PLATELET ESTIMATE ADEQUATE; PLATELET MORPHOLOGY NORMAL; TOTAL CELLS COUNTED 100
--- NOTE | 2016-05-25 13:38 | Nephrology Progress Note ---
Assessment/Plan Problem List: (1) Paraplegia (2) Epilepsy (3) Anemia in chronic kidney disease (4) CKD (chronic kidney disease) stage 5, GFR less than 15 ml/min Plan epogen and venofer, observe with hydration, downtrending bun and creatinine may be at baseline Subjective ROS Limited/Unobtainable: Yes Objective Objective Last 24 Hour Vital Signs Date Time Temp Pulse Resp B/P Pulse Ox O2 Delivery O2 Flow Rate FiO2 05/25/16 11:41 98.6 77 20 131/74 96 Room Air 05/25/16 09:03 66 164/85 05/25/16 09:03 164/85 05/25/16 09:03 66 164/85 05/25/16 08:26 98.2 66 19 164/85 99 Room Air 05/25/16 04:00 98.1 68 20 150/85 99 Room Air 05/25/16 00:00 98.2 77 20 140/76 98 Room Air 05/24/16 22:55 146/82 05/24/16 19:00 97.3 69 20 146/82 98 Room Air 05/24/16 15:46 97.5 69 20 131/71 98 Room Air Intake and Output 05/24/16 05/25/16 19:00 07:00 Intake Total 1505 ml 780 ml Output Total 500 ml 1250 ml Balance 1005 ml -470 ml Intake Oral 450 ml 120 ml IV Total 1055 ml 660 ml Output Urine Total 500 ml 1250 ml Laboratory Tests 05/25/16 05:00: White Blood Count 4.4L, Red Blood Count 2.09L, Hemoglobin 6.8*L, Hematocrit 22.0L, Mean Corpuscular Volume 105H, Mean Corpuscular Hemoglobin 32.4H, Mean Corpuscular Hemoglobin Concent 30.8L, Red Cell Distribution Width 13.4, Platelet Count 253, Mean Platelet Volume 4.7L, Neutrophils (%) (Auto) , Lymphocytes (%) (Auto) , Monocytes (%) (Auto) , Eosinophils (%) (Auto) , Basophils (%) (Auto) , Differential Total Cells Counted 100, Neutrophils % ( Manual) 60, Lymphocytes % (Manual) 28, Monocytes % (Manual) 10, Eosinophils % ( Manual) 2, Basophils % (Manual) 0, Band Neutrophils 0, Platelet Estimate Adequate, Platelet Morphology Normal, Hypochromasia 1+, Macrocytosis 1+, Sodium Level 143, Potassium Level 5.3H, Chloride Level 105, Carbon Dioxide Level 25, Anion Gap 13, Blood Urea Nitrogen 43H, Creatinine 2.8H, Estimat Glomerular Filtration Rate , Glucose Level 91, Calcium Level 7.6L Height (Feet): 5 Height (Inches): 8.00 Weight (Pounds): 158 General Appearance: no apparent distress, alert, confused EENT: normal ENT inspection Neck: normal alignment Cardiovascular: normal rate, regular rhythm Respiratory/Chest: lungs clear Abdomen: non tender, soft Extremities: trace edema Neurologic: motor weakness XI FUENTES May 25, 2016 13:38
[2016-05-25] MEDS: Iron Sucrose 100 MG in NS 55 ML IVPB SCH (20:01)
[2016-05-26] VITALS: BP_SYST 106; BP_SYST 145; BP_DIAS 65; BP_DIAS 98
--- NOTE | 2016-05-26 01:48 | Progress Note ---
DATE: 05/25/2016 CARDIOLOGY PROGRESS NOTE SUBJECTIVE: The patient without complaints of chest pain. No shortness of breath. He remains on IV fluids. Hemoglobin of 6.8 was noted today. No signs of bleeding. OBJECTIVE: VITAL SIGNS: Blood pressure 150/85, pulse 68, and respirations 20. NECK: Supple. LUNGS: Clear. CARDIAC: Regular rhythm and rate. Normal S1 and S2 with a fourth heart sound. ABDOMEN: Soft. EXTREMITIES: No edema. IMPRESSION: 1. Anemia multifactorial. 2. No signs of bleeding. 3. Hypertensive heart disease. 4. Acute on chronic kidney injury. PLAN: 1. Adjust intravenous fluids. 2. Avoid GREGORY inhibitors. 3. Refer additional antihypertensive therapy. 4. Packed red blood cell transfusion. 5. Continue monitoring renal parameters. 6. Epogen therapy. Artem Byers M.D. DR: DENA JOB#: [id number] CC:
[2016-05-26 04:00] VITALS: BP 169/85
[2016-05-26] MEDS: NovoLOG Insulin Flexpen SUBQ SCH ×4 (06:27→21:00)
[2016-05-26 07:27] LABS: ANION GAP 15 (5-15); BASOPHILS % (AUTO) 0.9 % (0.0-2.0); CALCIUM 7.7 mg/dL (8.6-10.2); CARBON DIOXIDE 26 mEQ/L (20-30); CHLORIDE 101 mEQ/L (98-107); CREATININE 2.9 mg/dL (0.7-1.2); EOSINOPHILS % (AUTO) 1.5 % (0.0-3.0); HEMOLYSIS 0; LYMPHOCYTES % (AUTO) 23.5 % (20.0-45.0); MEAN CORPUSCULAR HEMOGLOBIN 33.2 PG (27.0-31.0); MEAN CORPUSCULAR VOLUME 98 FL (80-99); PLATELET COUNT 243 K/UL (150-450); RED BLOOD COUNT 3.07 M/UL (4.70-6.10); RED CELL DISTRIBUTION WIDTH 15.9 % (11.6-14.8); SODIUM 142 mEQ/L (135-145); WHITE BLOOD COUNT 5.7 K/UL (4.8-10.8)
[2016-05-26 08:12] VITALS: BP 179/85
[2016-05-26] MEDS: Aspirin Baby 81mg ORAL SCH (08:29)
[2016-05-26] MEDS: Cefepime 500mg in D5W 55ml IVPB SCH (08:29)
[2016-05-26] MEDS: Dorzolamide 2% Btl BOTH EYES SCH ×2 (08:29→18:05)
[2016-05-26] MEDS: Sodium Citrate 30ml ORAL SCH ×3 (08:29→18:03)
[2016-05-26] MEDS: carBAMazepine 200mg tab ORAL SCH ×3 (08:30→18:04)
[2016-05-26] MEDS: Tamsulosin 0.4mg cap ORAL SCH (08:30)
[2016-05-26] MEDS: Multivitamin w/Minerals tab ORAL SCH (08:30)
[2016-05-26] MEDS: HydrALAZINE 50mg tab ORAL SCH ×2 (08:30→21:00)
[2016-05-26] MEDS: Heparin 5000 units/ml inj SUBQ SCH ×2 (08:32→20:59)
--- NOTE | 2016-05-26 09:20 | General Progress Note ---
Assessment/Plan Problem List: (1) Acute renal failure ICD Codes: N17.9 - Acute kidney failure, unspecified SNOMED: 43587602 (2) Anemia ICD Codes: D64.9 - Anemia, unspecified SNOMED: 176722294 (3) Fever ICD Codes: R50.9 - Fever, unspecified SNOMED: 777069226 (4) Abnormal laboratory test result ICD Codes: R89.9 - Unspecified abnormal finding in specimens from other organs , systems and tissues SNOMED: 701917673 Assessment/Plan ivf monitor renal fxn- improving monitor h/h follow up stool ob anemia - ?secondary to ckd +/- chronic disease needs prbc transfusion today pt ok with it Subjective ROS Limited/Unobtainable: No Constitutional: Reports: malaise, weakness HEENT: Reports: no symptoms Cardiovascular: Reports: no symptoms Respiratory: Reports: no symptoms Gastrointestinal/Abdominal: Reports: no symptoms Genitourinary: Reports: no symptoms Neurologic/Psychiatric: Reports: no symptoms Endocrine: Reports: no symptoms Hematologic/Lymphatic: Reports: no symptoms Allergies: Coded Allergies: No Known Allergies (Unverified , 05/08/16) All Systems: reviewed and negative except above Subjective no complaints. no chest pain renal infxn seems to have stabalized- ?baseline h/h better after transfusion stool ob negative suspect anemia of chronic disease/ckd dc planning if ok wih all Objective Last 24 Hour Vital Signs Date Time Temp Pulse Resp B/P Pulse Ox O2 Delivery O2 Flow Rate FiO2 05/26/16 08:31 68 179/85 05/26/16 08:30 179/85 05/26/16 08:29 68 179/85 05/26/16 08:12 98.8 68 19 179/85 98 Room Air 05/26/16 04:00 98.2 71 20 169/85 96 Room Air 05/26/16 00:00 97.9 73 20 145/98 95 Room Air 05/25/16 20:17 154/93 05/25/16 20:00 98.1 68 20 154/93 97 Room Air 05/25/16 15:44 98.2 64 19 137/85 96 Room Air 05/25/16 11:41 98.6 77 20 131/74 96 Room Air Intake and Output 05/25/16 05/26/16 19:00 07:00 Intake Total 950 ml 290 ml Output Total 1000 ml 900 ml Balance -50 ml -610 ml Intake Oral 650 ml Blood Product 300 ml 290 ml Output Urine Total 1000 ml 900 ml Laboratory Tests 05/26/16 04:55: White Blood Count 5.7, Red Blood Count 3.07L, Hemoglobin 10.2#L, Hematocrit 30.0 #L, Mean Corpuscular Volume 98, Mean Corpuscular Hemoglobin 33.2H, Mean Corpuscular Hemoglobin Concent 34.0, Red Cell Distribution Width 15.9H, Platelet Count 243, Mean Platelet Volume 5.0L, Neutrophils (%) (Auto) 66.0, Lymphocytes (%) (Auto) 23.5, Monocytes (%) (Auto) 8.0, Eosinophils (%) (Auto) 1.5, Basophils (%) (Auto) 0.9, Sodium Level 142, Potassium Level 5.0H, Chloride Level 101, Carbon Dioxide Level 26, Anion Gap 15, Blood Urea Nitrogen 45H, Creatinine 2.9H, Estimat Glomerular Filtration Rate , Glucose Level 89, Calcium Level 7.7L, Pro-B-Type Natriuretic Peptide 2212H Height (Feet): 5 Height (Inches): 8.00 Weight (Pounds): 158 Objective General Appearance: WD/WN, alert Neck: supple Cardiovascular: regular rhythm Respiratory/Chest: lungs clear, normal breath sounds, no respiratory distress Abdomen: normal bowel sounds, non tender, soft, no organomegaly, no mass Edema: no edema noted Arm (L), no edema noted Arm (R), no edema noted Leg (L), no edema noted Leg (R), no edema noted Pedal (L), no edema noted Pedal (R), no edema noted 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
--- NOTE | 2016-05-26 11:05 | Nephrology Progress Note ---
Assessment/Plan Problem List: (1) Paraplegia (2) Epilepsy (3) Anemia in chronic kidney disease (4) CKD (chronic kidney disease) stage 5, GFR less than 15 ml/min Plan epogen and venofer, observe with hydration, can dc iv now, downtrending bun and creatinine may be at baseline Subjective ROS Limited/Unobtainable: Yes Objective Objective Last 24 Hour Vital Signs Date Time Temp Pulse Resp B/P Pulse Ox O2 Delivery O2 Flow Rate FiO2 05/26/16 08:31 68 179/85 05/26/16 08:30 179/85 05/26/16 08:29 68 179/85 05/26/16 08:12 98.8 68 19 179/85 98 Room Air 05/26/16 04:00 98.2 71 20 169/85 96 Room Air 05/26/16 00:00 97.9 73 20 145/98 95 Room Air 05/25/16 20:17 154/93 05/25/16 20:00 98.1 68 20 154/93 97 Room Air 05/25/16 15:44 98.2 64 19 137/85 96 Room Air 05/25/16 11:41 98.6 77 20 131/74 96 Room Air Intake and Output 05/25/16 05/26/16 19:00 07:00 Intake Total 950 ml 290 ml Output Total 1000 ml 900 ml Balance -50 ml -610 ml Intake Oral 650 ml Blood Product 300 ml 290 ml Output Urine Total 1000 ml 900 ml Laboratory Tests 05/26/16 04:55: White Blood Count 5.7, Red Blood Count 3.07L, Hemoglobin 10.2#L, Hematocrit 30.0 #L, Mean Corpuscular Volume 98, Mean Corpuscular Hemoglobin 33.2H, Mean Corpuscular Hemoglobin Concent 34.0, Red Cell Distribution Width 15.9H, Platelet Count 243, Mean Platelet Volume 5.0L, Neutrophils (%) (Auto) 66.0, Lymphocytes (%) (Auto) 23.5, Monocytes (%) (Auto) 8.0, Eosinophils (%) (Auto) 1.5, Basophils (%) (Auto) 0.9, Sodium Level 142, Potassium Level 5.0H, Chloride Level 101, Carbon Dioxide Level 26, Anion Gap 15, Blood Urea Nitrogen 45H, Creatinine 2.9H, Estimat Glomerular Filtration Rate , Glucose Level 89, Calcium Level 7.7L, Pro-B-Type Natriuretic Peptide 2212H Height (Feet): 5 Height (Inches): 8.00 Weight (Pounds): 158 General Appearance: confused EENT: PERRL/EOMI Neck: normal alignment Cardiovascular: normal rate, regular rhythm Respiratory/Chest: normal breath sounds Abdomen: non tender, soft Neurologic: motor weakness XI FUENTES May 26, 2016 11:05
[2016-05-26 12:03] VITALS: BP 120/63
[2016-05-26 16:00] VITALS: BP 180/89
[2016-05-26] MEDS ORDERED: Sodium Bicarbonate 50 ML in 1/2 NS 1000ml 1,000 ML IV SCH (16:00)
[2016-05-26] MEDS: HydrALAZINE 25mg tab ORAL PRN (18:12)
[2016-05-26 19:00] VITALS: BP 148/80
[2016-05-26] MEDS ORDERED: Tubing IV Blood Pump IV ONE (20:49)
[2016-05-26] MEDS ORDERED: NS 275ml ONE (20:49)
[2016-05-26] MEDS ORDERED: Tubing IV Secondary IV ONE (20:49)
[2016-05-26] MEDS ORDERED: NS 550ML IV ONE (20:49)
[2016-05-26] MEDS: Iron Sucrose 100 MG in NS 55 ML IVPB SCH (21:08)
[2016-05-27] VITALS: BP 157/79
[2016-05-27 04:00] VITALS: BP 175/78
[2016-05-27] MEDS: NovoLOG Insulin Flexpen SUBQ SCH ×5 (06:30→21:00)
[2016-05-27 07:52] LABS: ANION GAP 13 (5-15); CALCIUM 7.9 mg/dL (8.6-10.2); CARBON DIOXIDE 26 mEQ/L (20-30); CHLORIDE 106 mEQ/L (98-107); HEMOLYSIS 12; POTASSIUM 5.2 mEQ/L (3.4-4.9); SODIUM 145 mEQ/L (135-145)
[2016-05-27 08:07] VITALS: BP 185/98
--- NOTE | 2016-05-27 08:07 | General Progress Note ---
Assessment/Plan Problem List: (1) Acute renal failure ICD Codes: N17.9 - Acute kidney failure, unspecified SNOMED: 26820544 (2) Anemia ICD Codes: D64.9 - Anemia, unspecified SNOMED: 629743493 (3) Fever ICD Codes: R50.9 - Fever, unspecified SNOMED: 150640182 (4) Abnormal laboratory test result ICD Codes: R89.9 - Unspecified abnormal finding in specimens from other organs , systems and tissues SNOMED: 654389884 Status: stable, progressing Assessment/Plan off ivf monitor renal fxn- improving monitor h/h follow up stool ob anemia - ?secondary to ckd +/- chronic disease titrate bp rx dc planning tomorrow if ok with all and bp better controlled Subjective ROS Limited/Unobtainable: No Constitutional: Reports: malaise, weakness HEENT: Reports: no symptoms Cardiovascular: Reports: no symptoms Respiratory: Reports: no symptoms Gastrointestinal/Abdominal: Reports: no symptoms Genitourinary: Reports: no symptoms Neurologic/Psychiatric: Reports: no symptoms Endocrine: Reports: no symptoms Hematologic/Lymphatic: Reports: no symptoms Allergies: Coded Allergies: No Known Allergies (Unverified , 05/08/16) All Systems: reviewed and negative except above Subjective no complaints. BP running very high no chest pain renal infxn seems to have stabalized- ?baseline h/h better after transfusion stool ob negative suspect anemia of chronic disease/ckd dc planning if ok wih all Objective Last 24 Hour Vital Signs Date Time Temp Pulse Resp B/P Pulse Ox O2 Delivery O2 Flow Rate FiO2 05/27/16 04:00 97.7 70 20 175/78 97 Room Air 05/27/16 00:00 97.9 59 20 157/79 96 Room Air 05/26/16 21:00 141/80 05/26/16 19:00 98.2 77 18 148/80 95 Room Air 05/26/16 18:12 180/89 05/26/16 16:00 97.5 67 18 180/89 97 Room Air 05/26/16 12:03 97.7 68 20 120/63 99 Room Air 05/26/16 08:31 68 179/85 05/26/16 08:30 179/85 05/26/16 08:29 68 179/85 05/26/16 08:12 98.8 68 19 179/85 98 Room Air Intake and Output 05/26/16 05/27/16 19:00 07:00 Intake Total 240 ml 480 ml Output Total 800 ml 1150 ml Balance -560 ml -670 ml Intake Oral 240 ml 480 ml Output Urine Total 800 ml 1150 ml # Voids 2 # Bowel Movements 1 Laboratory Tests 05/27/16 05:30: Sodium Level 145, Potassium Level 5.2H, Chloride Level 106, Carbon Dioxide Level 26, Anion Gap 13, Blood Urea Nitrogen 45H, Creatinine 3.0H, Estimat Glomerular Filtration Rate , Glucose Level 86, Calcium Level 7.9L Height (Feet): 5 Height (Inches): 8.00 Weight (Pounds): 158 Objective General Appearance: WD/WN, alert Neck: supple Cardiovascular: regular rhythm Respiratory/Chest: lungs clear, normal breath sounds, no respiratory distress Abdomen: normal bowel sounds, non tender, soft, no organomegaly, no mass Edema: no edema noted Arm (L), no edema noted Arm (R), no edema noted Leg (L), no edema noted Leg (R), no edema noted Pedal (L), no edema noted Pedal (R), no edema noted Generalized 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
[2016-05-27] MEDS: HydrALAZINE 50mg tab ORAL SCH ×3 (09:01→21:17)
[2016-05-27] MEDS: carBAMazepine 200mg tab ORAL SCH ×3 (09:02→17:56)
[2016-05-27] MEDS: Aspirin Baby 81mg ORAL SCH (09:02)
[2016-05-27] MEDS: Tamsulosin 0.4mg cap ORAL SCH (09:03)
[2016-05-27] MEDS: Sodium Citrate 30ml ORAL SCH ×3 (09:03→17:56)
[2016-05-27] MEDS: Multivitamin w/Minerals tab ORAL SCH (09:03)
[2016-05-27] MEDS: Cefepime 500mg in D5W 55ml IVPB SCH (09:04)
[2016-05-27] MEDS: Heparin 5000 units/ml inj SUBQ SCH ×2 (09:07→21:09)
[2016-05-27] MEDS: Dorzolamide 2% Btl BOTH EYES SCH ×2 (09:09→17:56)
[2016-05-27 11:53] VITALS: BP 127/67
--- NOTE | 2016-05-27 14:24 | Nephrology Progress Note ---
Assessment/Plan Problem List: (1) Paraplegia (2) Epilepsy (3) Anemia in chronic kidney disease (4) CKD (chronic kidney disease) stage 5, GFR less than 15 ml/min Plan epogen and venofer, observe with hydration, can dc iv now, downtrending bun and creatinine may be at baseline Subjective ROS Limited/Unobtainable: Yes Objective Objective Last 24 Hour Vital Signs Date Time Temp Pulse Resp B/P Pulse Ox O2 Delivery O2 Flow Rate FiO2 05/27/16 13:50 127/67 05/27/16 11:53 97.6 71 15 127/67 95 Room Air 05/27/16 09:03 67 185/98 05/27/16 09:02 67 185/98 05/27/16 09:01 185/98 05/27/16 08:07 97.7 67 16 185/98 98 Room Air 05/27/16 04:00 97.7 70 20 175/78 97 Room Air 05/27/16 00:00 97.9 59 20 157/79 96 Room Air 05/26/16 21:00 141/80 05/26/16 19:00 98.2 77 18 148/80 95 Room Air 05/26/16 18:12 180/89 05/26/16 16:00 97.5 67 18 180/89 97 Room Air Intake and Output 05/26/16 05/27/16 19:00 07:00 Intake Total 240 ml 480 ml Output Total 800 ml 1150 ml Balance -560 ml -670 ml Intake Oral 240 ml 480 ml Output Urine Total 800 ml 1150 ml # Voids 2 # Bowel Movements 1 Laboratory Tests 05/27/16 05:30: Sodium Level 145, Potassium Level 5.2H, Chloride Level 106, Carbon Dioxide Level 26, Anion Gap 13, Blood Urea Nitrogen 45H, Creatinine 3.0H, Estimat Glomerular Filtration Rate , Glucose Level 86, Calcium Level 7.9L Height (Feet): 5 Height (Inches): 8.00 Weight (Pounds): 158 General Appearance: no apparent distress, alert, confused EENT: normal ENT inspection Neck: normal alignment Cardiovascular: normal rate, regular rhythm Respiratory/Chest: lungs clear Abdomen: non tender, soft, no organomegaly Neurologic: motor weakness XI FUENTES May 27, 2016 14:24
[2016-05-27] MEDS ORDERED: NS 275ml ONE (14:52)
[2016-05-27] MEDS ORDERED: Tubing IV Secondary IV ONE (14:52)
[2016-05-27 16:00] VITALS: BP 141/70
[2016-05-27 19:00] VITALS: BP 139/77
[2016-05-28] VITALS: BP 172/78
--- NOTE | 2016-05-28 01:28 | Progress Note ---
DATE: 05/27/2016 SUBJECTIVE: The patient received transfusion yesterday. Followup hemoglobin was above 10. He is in no distress. He is now off IV fluids. Renal parameters and volume status are being monitored. OBJECTIVE: VITAL SIGNS: Blood pressure 141/70, pulse 60, and respiratory rate 18. NECK: Supple. LUNGS: Clear. CARDIAC: Regular. Normal S1 and S2 with a fourth heart sound. ABDOMEN: Soft. Trace edema. LABORATORY DATA: Potassium 5.2, BUN 45, and creatinine 3. IMPRESSION: 1. Acute on chronic renal failure, improved. BUN and creatinine is slightly worse from yesterday since IV fluids discontinued. Its maybe baseline. No signs of volume overload. 2. Hypertension, better controlled and more stable. 3. Hyperkalemia remains an issue, but he does not need any treatment today. 4. Anemia due to chronic kidney disease, status post transfusion. PLAN: 1. Recheck electrolytes, renal parameters, and hemoglobins in the next 24 hours with discharge plan. 2. Continue antihypertensive regimen. 3. Maintain Epogen for long-term management of anemia and iron replacement. Artem Byers M.D. DR: DIPIKA JOB#: [id number] CC:
[2016-05-28] MEDS: HydrALAZINE 25mg tab ORAL PRN ×2 (02:03→02:06)
--- NOTE | 2016-05-28 02:18 | Progress Note ---
CARDIOLOGY PROGRESS NOTE: Late entry for 05/26/2016. SUBJECTIVE: The patient is status post packed red blood cell transfusions yesterday. His hemoglobin today is 10.2 remains no signs of GI blood loss. The patient's renal function has improved. OBJECTIVE: VITAL SIGNS: Blood pressure remains labile ranging 131/74 yesterday to 179/85 today. NECK: Supple. LUNGS: Clear. CARDIAC: Regular normal S1, S2 with a fourth heart sound. ABDOMEN: Soft. No edema. IMPRESSION: 1. Accelerated hypertension. 2. Acute on chronic kidney injury. 3. Anemia secondary to chronic kidney disease requiring transfusions. PLAN: Optimize antihypertensive regimen. Continue transfusions as needed. Epogen as an outpatient may be considered. Monitor renal parameters and electrolytes. IV fluids now being discontinued. Artem Byers M.D. DR: Jose JOB#: [id number] CC:
[2016-05-28 04:00] VITALS: BP 149/88
[2016-05-28] MEDS: HydrALAZINE 50mg tab ORAL SCH ×3 (05:44→12:59)
[2016-05-28] MEDS: NovoLOG Insulin Flexpen SUBQ SCH ×3 (06:30→16:30)
[2016-05-28 07:21] LABS: BASOPHILS % (AUTO) 0.9 % (0.0-2.0); EOSINOPHILS % (AUTO) 2.2 % (0.0-3.0); LYMPHOCYTES % (AUTO) 25.3 % (20.0-45.0); MEAN CORPUSCULAR HEMOGLOBIN 31.4 PG (27.0-31.0); MEAN CORPUSCULAR HGB CONC 31.2 G/DL (32.0-36.0); MEAN CORPUSCULAR VOLUME 101 FL (80-99); MEAN PLATELET VOLUME 5.6 FL (6.5-10.1); NEUTROPHILS % (AUTO) 62.6 % (45.0-75.0); PLATELET COUNT 197 K/UL (150-450); RED CELL DISTRIBUTION WIDTH 15.4 % (11.6-14.8); WHITE BLOOD COUNT 4.7 K/UL (4.8-10.8)
[2016-05-28 07:24] LABS: ALANINE AMINOTRANSFERASE 20 U/L (3-41); ALBUMIN/GLOBULIN RATIO 0.8 (1.0-2.7); ANION GAP 13 (5-15); ASPARTATE AMINO TRANSFERASE 25 U/L (5-40); CARBON DIOXIDE 28 mEQ/L (20-30); CHLORIDE 105 mEQ/L (98-107); HEMOLYSIS 3; SODIUM 146 mEQ/L (135-145); TOTAL PROTEIN 6.5 g/dL (6.6-8.7)
[2016-05-28 08:14] VITALS: BP 141/66
[2016-05-28] MEDS: Multivitamin w/Minerals tab ORAL SCH (09:32)
[2016-05-28] MEDS: Tamsulosin 0.4mg cap ORAL SCH (09:32)
[2016-05-28] MEDS: Aspirin Baby 81mg ORAL SCH (09:32)
[2016-05-28] MEDS: Dorzolamide 2% Btl BOTH EYES SCH (09:32)
[2016-05-28] MEDS: carBAMazepine 200mg tab ORAL SCH ×2 (09:35→12:52)
[2016-05-28] MEDS: Cefepime 500mg in D5W 55ml IVPB SCH (09:36)
[2016-05-28] MEDS: Sodium Citrate 30ml ORAL SCH ×2 (09:36→12:52)
[2016-05-28] MEDS: Heparin 5000 units/ml inj SUBQ SCH (09:38)
[2016-05-28 11:15] LABS: OTHERS PATHOLOGIST COMMENT
[2016-05-28 11:57] VITALS: BP 151/74
[2016-05-28] MEDS ORDERED: NORVASC10 MG ORAL (13:25)
[2016-05-28] MEDS ORDERED: BICITRA30 ML ORAL (13:25)
[2016-05-28 16:00] VITALS: BP 136/81
[2016-05-28] MEDS ORDERED: NS 275ml ONE (17:14)
--- NOTE | 2016-05-29 03:08 | Discharge Summary ---
DATE OF ADMISSION: 05/21/2016 DATE OF DISCHARGE: 05/28/2016 ADMISSION DIAGNOSES: 1. Acute on chronic renal failure. 2. Seizure disorder. 3. Hypertension. 4. Hypertensive heart disease. 5. Gastroesophageal reflux disease. 6. Anemia. DISCHARGE DIAGNOSES: 1. Acute on chronic renal failure. 2. Seizure disorder. 3. Hypertension. 4. Hypertensive heart disease. 5. Gastroesophageal reflux disease. 6. Anemia. HOSPITAL COURSE: The patient is a pleasant male who is admitted with complaints of acute renal failure with a creatinine of 4. He was hydrated aggressively. Renal function did improve to 3, but did not improve to any further extent than 3. He had a renal ultrasound that showed no evidence of hydronephrosis. Renal and cardiology consultation was obtained. The patient likely has chronic kidney disease. He will go back to the senior care facility with monitoring of his renal function there. DISCHARGE MEDICATIONS: Please see discharge medication list for discharge medications. DIET: Cardiac diet. ACTIVITIES: Ad chris. FOLLOWUP: The patient is to follow up with his PMD in one to two days. Fausto Garay M.D. DR: JOSE JOB#: [id number] CC:
--- NOTE | 2016-05-29 04:58 | Progress Note ---
DATE: 05/28/2016 CARDIOLOGY PROGRESS NOTE SUBJECTIVE: Monitored rhythm sinus with sinus bradycardia. The patient is without shortness of breath. OBJECTIVE: VITAL SIGNS: Blood pressure 151/74, pulse 66, respirations 19, and room air oxygen 97%. LUNGS: Clear. CARDIAC: Regular. Normal S1 and S2. ABDOMEN: Soft. EXTREMITIES: No edema. LABORATORY DATA: White count 4.7 and hemoglobin 9.7. Sodium 142, potassium 5, bicarbonate 28, BUN 45, and creatinine 3.0. Pro-natriuretic peptide . Albumin 3. IMPRESSION: 1. Chronic kidney disease. 2. Elevated natriuretic peptide secondary to chronic kidney disease. 3. Chronic diastolic congestive heart failure. 4. Mild protein-calorie malnutrition. 5. Dehydration. 6. Hypernatremia. 7. Hyperkalemia, improved. 8. Anemia of chronic kidney disease status post transfusions. PLAN: 1. No additional diuresis. 2. Monitor hemoglobin as outpatient. 3. Continue Epogen and iron replacement. 4. Encourage free water replacement and protein supplementation. 5. Maintain current antihypertensive regimen. Artem Byers M.D. DR: VA JOB#: [id number] CC:
== END 2016-05-28 17:15 | DRG 460 ==
LOC: EDBD 20:19 → EMR 20:51 → 4E 21:42 → EDBEDREQ 05-22 01:13
PROC: 30233N1 Transfusion of Nonautologous Red Blood Cells into Peripheral Vein, Percutaneous Approach (ICD-10-PCS; principal; 2016-05-25)
DX: N17.0 Acute kidney failure with tubular necrosis (principal); I13.2 Hypertensive heart and chronic kidney disease with heart failure and with stage 5 chronic kidney disease, or end stage renal disease; E87.2 Acidosis; E44.0 Moderate protein-calorie malnutrition; E87.5 Hyperkalemia; G82.20 Paraplegia, unspecified; E11.9 Type 2 diabetes mellitus without complications; D63.1 Anemia in chronic kidney disease; E86.0 Dehydration; F01.50 Vascular dementia, unspecified severity, without behavioral disturbance, psychotic disturbance, mood disturbance, and anxiety; G40.909 Epilepsy, unspecified, not intractable, without status epilepticus; K21.9 Gastro-esophageal reflux disease without esophagitis; I25.10 Atherosclerotic heart disease of native coronary artery without angina pectoris; N40.0 Benign prostatic hyperplasia without lower urinary tract symptoms; H40.9 Unspecified glaucoma; M19.90 Unspecified osteoarthritis, unspecified site; N18.5 Chronic kidney disease, stage 5; I69.919 Unspecified symptoms and signs involving cognitive functions following unspecified cerebrovascular disease; I50.32 Chronic diastolic (congestive) heart failure; R50.9 Fever, unspecified
CPT/HCPCS: 36415; 76775; 80048; 80053; 82270; 82550; 82553; 82570; 82962; 83036; 83540; 83550; 83880; 83935; 84300; 84484; 85007; 85025; 85610; 85730; 86850; 86900; 86901; 86920; 87081; 93005; J1815

== ENCOUNTER 2016-11-15 20:13 | Inpatient (IN) | payer MEDICARE, MEDICAID ==
[~2016-11-15] VITALS: Ht 175.3 cm; Wt 90.7 kg
[~2016-11-15 20:13] MED LIST changes: +BICITRA30 ML ORAL; +NORVASC10 MG ORAL
[2016-11-15 20:20] VITALS: BP 216/87
--- NOTE | 2016-11-15 21:21 | Emergency Room Report ---
History of Present Illness General Chief Complaint: Abnormal Labs Source: Patient, Medical Record Present Illness HPI 81YOM BIBEMS for abnormal labs, elevated BUN/CR Known CKD - admitted May 2016 for same. SerumCr bump to 4 at the time Patient asymptomatic Patient denies chest pain, SOB, abd pain, nausea/vomiting, urinary complaints Allergies: Coded Allergies: No Known Allergies (Unverified , 05/08/16) Patient History Past Medical History: HTN, renal disease, other - hypertensive heart disease, anemia Past Surgical History: unable to obtain Pertinent Family History: unable to obtain Social History: Denies: smoking, alcohol use, drug use Immunizations: UTD Reviewed Nursing Documentation: PMH: Agreed, PSxH: Agreed Nursing Documentation-PMH Past Medical History: No History, Except For Hx Cardiac Problems: Yes Hx Hypertension: Yes Hx Pacemaker: No - CKD, ATROPHY OF KIDNEY, ANEMIA, BPH, GLAUCOMA, Hx Diabetes: Yes Hx Gastrointestinal Problems: Yes - DYSPHAGIA Hx Neurological Problems: Yes Hx Epilepsy: Yes Review of Systems All Other Systems: negative except mentioned in HPI Physical Exam Vital Signs Date Time Temp Pulse Resp B/P (MAP) Pulse Ox O2 Delivery O2 Flow Rate FiO2 11/15/16 20:09 98.2 58 16 183/81 97 Room Air Sp02 EP Interpretation: reviewed, normal General Appearance: normal inspection, well appearing, no apparent distress, alert, GCS 15, non-toxic Head: normocephalic, atraumatic Eyes: bilateral eye PERRL, bilateral eye EOMI ENT: normal ENT inspection, hearing grossly normal, normal voice Neck: normal inspection, full range of motion, supple, no bony tend Respiratory: normal inspection, lungs clear, normal breath sounds, no respiratory distress, no retraction, no wheezing Cardiovascular #1: regular rate, rhythm, no edema Gastrointestinal: normal inspection, normal bowel sounds, non tender, soft, no guarding, no hernia Genitourinary: no CVA tenderness Musculoskeletal: normal inspection, back normal, normal range of motion, Demian' s Sign negative Neurologic: normal inspection, alert, oriented x3, responsive, costing analyst III-XII nml as tested, motor strength/tone normal, speech normal Psychiatric: normal inspection, judgement/insight normal, mood/affect normal Skin: normal inspection, normal color, no rash Lymphatic: normal inspection Medical Decision Making Medicare Attestation I Virgie Gallardo MD hereby attest that the medical record entry for date of service, 11/15/16 accurately reflects signatures/notations that I made in my capacity as MD when I treated/diagnosed the above listed Medicare beneficiary. I attest that this information is true, accurate and complete to the best of my knowledge. I understand that any falsification, omission, or concealment of material fact may subject me to administrative, civil, or criminal liability. This patient warrants hospital admission for extreme of age and has a condition that cannot be treated as outpatient. Diagnostic Impression: Primary Impression: Acute renal failure Qualified Codes: N17.9 - Acute kidney failure, unspecified Additional Impression: CKD (chronic kidney disease) stage 5, GFR less than 15 ml/min ER Course Afebrile. VSS. No complaints serumCr range 2.8-4 in 2017 Tonight: 3.[address] Garay for admission at 10pm, med/surg ?acute on chronic CKD EKG Diagnostic Results Rate: normal Rhythm: NSR ST Segments: no acute changes ASA given to the pt in ED: No Rhythm Strip Diag. Results EP Interpretation: yes Rate: 58 Rhythm: NSR, no PVC's, no ectopy Chest X-Ray Diagnostic Results Chest X-Ray Diagnostic Results : Chest X-Ray Ordered: Yes # of Views/Limited/Complete: 1 View Indication: Other - fever EP Interpretation: Yes Interpretation: no consolidation, no effusion, no pneumothorax, no acute cardiopulmonary disease, other - Unchanged from previous Apr 2016 study Last Vital Signs Date Time Temp Pulse Resp B/P (MAP) Pulse Ox O2 Delivery O2 Flow Rate FiO2 11/15/16 20:09 98.2 58 16 183/81 97 Room Air Status: improved Disposition: ADMITTED INPATIENT Condition: Serious VIRGIE GALLARDO M.D. Nov 15, 2016 21:21
[2016-11-15] MEDS ORDERED: LORazepam 1mg tab ORAL PRN (21:45)
[2016-11-15] MEDS ORDERED: Acetaminophen 500mg (ES) tab ORAL PRN (21:45)
[2016-11-15 22:14] LABS: BASOPHILS % (AUTO) 1.3 % (0.0-2.0); EOSINOPHILS % (AUTO) 2.1 % (0.0-3.0); MEAN CORPUSCULAR HEMOGLOBIN 35.8 PG (27.0-31.0); MEAN CORPUSCULAR VOLUME 102 FL (80-99); MEAN PLATELET VOLUME 5.6 FL (6.5-10.1); MONOCYTES % (AUTO) 9.5 % (1.0-10.0); NEUTROPHILS % (AUTO) 54.2 % (45.0-75.0); PLATELET COUNT 152 K/UL (150-450); RED BLOOD COUNT 2.88 M/UL (4.70-6.10); RED CELL DISTRIBUTION WIDTH 12.2 % (11.6-14.8); WHITE BLOOD COUNT 4.2 K/UL (4.8-10.8)
[2016-11-15 22:26] LABS: TROPONIN I < 0.30 ng/mL (<=0.30)
[2016-11-15 22:30] VITALS: BP 194/93
[2016-11-15 22:46] LABS: ALANINE AMINOTRANSFERASE 9 U/L (3-41); ALBUMIN/GLOBULIN RATIO 1.1 (1.0-2.7); ANION GAP 11 (5-15); ASPARTATE AMINO TRANSFERASE 11 U/L (5-40); CALCIUM 8.3 mg/dL (8.6-10.2); CARBON DIOXIDE 29 mEQ/L (20-30); CHLORIDE 94 mEQ/L (98-107); CREATININE 3.5 mg/dL (0.7-1.2); HEMOLYSIS 4; POTASSIUM 4.6 mEQ/L (3.4-4.9); SODIUM 134 mEQ/L (135-145); TOTAL PROTEIN 7.2 g/dL (6.6-8.7)
[2016-11-16 00:05] VITALS: BP 165/75
[2016-11-16 00:20] VITALS: BP 140/67
[2016-11-16 04:00] VITALS: BP 145/75
[2016-11-16] MEDS: carBAMazepine 200mg tab ORAL SCH ×2 (09:00→17:29)
[2016-11-16] MEDS: Dorzolamide 2% Btl BOTH EYES SCH ×2 (09:00→17:36)
[2016-11-16] MEDS: Docusate 100mg cap ORAL SCH (09:00)
[2016-11-16] MEDS: Multivitamin w/Minerals tab ORAL SCH (09:00)
[2016-11-16] MEDS: Heparin 5000 units/ml inj SUBQ SCH ×2 (09:31→22:01)
[2016-11-16] MEDS: Sodium Citrate 30ml ORAL SCH ×3 (09:31→17:29)
[2016-11-16] MEDS: Aspirin Baby 81mg ORAL SCH (09:33)
[2016-11-16] MEDS: Tamsulosin 0.4mg cap ORAL SCH (09:33)
[2016-11-16 09:39] LABS: ALANINE AMINOTRANSFERASE 7 U/L (3-41); ALBUMIN/GLOBULIN RATIO 1.1 (1.0-2.7); ANION GAP 12 (5-15); ASPARTATE AMINO TRANSFERASE 10 U/L (5-40); CALCIUM 8.3 mg/dL (8.6-10.2); CARBAMAZEPINE (TEGRETOL) 3.6 ug/mL (4.0-12.0); CARBON DIOXIDE 25 mEQ/L (20-30); CHLORIDE 102 mEQ/L (98-107); CREATININE 3.7 mg/dL (0.7-1.2); HEMOLYSIS 0; POTASSIUM 4.4 mEQ/L (3.4-4.9); SODIUM 139 mEQ/L (135-145); TOTAL PROTEIN 6.6 g/dL (6.6-8.7)
--- NOTE | 2016-11-16 10:23 | Diagnostic Imaging Report ---
Indication: Dyspnea Comparison: None A single view chest radiograph was obtained. Findings: Cardiomediastinal appearance is within normal limits for age. Pulmonary vascularity is appropriate. The diaphragmatic contour is smooth and costophrenic angles are sharp. No pleural effusions are identified. The bones are osteopenic. Impression: No acute findings
--- NOTE | 2016-11-16 11:37 | Diagnostic Imaging Report ---
Indication:Elevated Bun and Creatinine. Technique: Grayscale and duplex Doppler imaging of the kidneys performed. Comparison: None Findings: Kidneys are echogenic and borderline small. At the left kidney measures 8.9 CM and the right 9.2 CM in length. There is no hydronephrosis. IVC is unremarkable in appearance. Urinary bladder is grossly unremarkable. However the bladder is relatively nondistended. Impression: Medical renal disease
--- NOTE | 2016-11-16 16:00 | History and Physical Report ---
DATE OF ADMISSION: 11/15/2016 CHIEF COMPLAINT: Acute on chronic renal failure and encephalopathy. HISTORY OF PRESENT ILLNESS: The patient is an 81-year-old male. He has multiple medical problems including history of chronic kidney disease, hypertension, peripheral vascular disease, prostate cancer, gastritis, and glaucoma. He has history of diabetes and seizure disorder. He was transferred from a [facility] facility with complaints of acute on chronic renal failure. Laboratories at the [facility] facility showed a creatinine of nearly 4. His baseline is around 2. According to the patient, he has been having diarrhea for the last three weeks. He denies any fever or chills. Denies any abdominal pain. Denies any dysuria. On evaluation in the emergency room, repeat creatinine was 3.5, which is still significantly higher than his baseline. In light of worsening renal insufficiency, he is now admitted for further evaluation and care. In addition to being in hypertensive, he has been in acute renal failure, he was also markedly hypertensive with systolic blood pressure as high as 216. PAST MEDICAL HISTORY: As above. PAST SURGICAL HISTORY: Includes "prostate surgery." CURRENT MEDICATIONS: Reconciled and reviewed. ALLERGIES: None. FAMILY HISTORY: Unknown. SOCIAL HISTORY: The patient states he is a smoker. No alcohol. No drugs. REVIEW OF SYSTEMS: General: No fever or chills. HEENT: No headaches or visual changes. Cardiopulmonary: No chest pain or shortness of breath. Gastrointestinal: No nausea or vomiting. Genitourinary: No urgency or frequency. Musculoskeletal: No joint pain or swelling. Neurologic: Positive history of seizures. PHYSICAL EXAMINATION: VITAL SIGNS: Blood pressure 216/87, temperature 98.4, pulse 51, and respirations 14. GENERAL: The patient is well-developed male, in no apparent distress. He is awake, alert, and oriented to only person and place. HEENT: His pupils are equal, round, and reactive to light. Sclerae anicteric. Oropharynx clear. NECK: Supple. HEART: Regular rate and rhythm. LUNGS: Clear. ABDOMEN: Soft, nontender, and nondistended. EXTREMITIES: Without clubbing, cyanosis, or edema. LABORATORY DATA: Sodium 134, potassium 4.6, BUN 56, and creatinine was 3.5. White count was 4.2, hemoglobin 10, hematocrit 29, and platelets of 152,000. ASSESSMENT: This is an elderly male with multiple medical problems, admitted with complaints of acute renal failure, suspect secondary to dehydration, possibly from diarrhea, plus dehydration. 1. Acute on chronic renal failure. 2. Questionable diarrhea. 3. Dehydration. 4. Diabetes. 5. Hypertension. 6. Peripheral vascular disease. 7. History of prostate cancer. 8. History of gastritis. 9. History of seizure disorder and psychosis. PLAN: IV fluids. Check renal ultrasound. Titrate blood pressure medications. Cardiology and Renal consultations to be obtained. Monitor renal function and volume status closely. Further plan and care and treatment was based upon review of pending tests and the patient's response to hydration. Fausto Garay M.D. DR: MAURICE JOB#: [id number] CC:
[2016-11-16 16:26] VITALS: BP 164/99
[2016-11-16 20:00] VITALS: BP 186/97
[2016-11-17] VITALS (7 sets, daily range): BP systolic 134–186; BP diastolic 59–88
[2016-11-17] MEDS: Aspirin Baby 81mg ORAL SCH (09:00)
[2016-11-17] MEDS: Sodium Citrate 30ml ORAL SCH ×3 (09:00→18:29)
[2016-11-17] MEDS: Tamsulosin 0.4mg cap ORAL SCH (09:00)
[2016-11-17] MEDS: Dorzolamide 2% Btl BOTH EYES SCH ×2 (09:00→18:29)
[2016-11-17] MEDS: Docusate 100mg cap ORAL SCH (09:00)
[2016-11-17] MEDS: Heparin 5000 units/ml inj SUBQ SCH ×2 (09:00→20:27)
[2016-11-17] MEDS: Multivitamin w/Minerals tab ORAL SCH (09:00)
[2016-11-17] MEDS: carBAMazepine 200mg tab ORAL SCH ×2 (09:00→18:28)
--- NOTE | 2016-11-17 09:20 | General Progress Note ---
Assessment/Plan Problem List: (1) Anemia ICD Codes: D64.9 - Anemia, unspecified SNOMED: 226490218 (2) Acute renal failure ICD Codes: N17.9 - Acute kidney failure, unspecified SNOMED: 25701245 Qualifiers: Qualified Codes: N17.9 - Acute kidney failure, unspecified (3) CKD (chronic kidney disease) stage 5, GFR less than 15 ml/min ICD Codes: N18.5 - Chronic kidney disease, stage 5 SNOMED: 014494269 (4) Fever ICD Codes: R50.9 - Fever, unspecified SNOMED: 991122505 (5) Abnormal laboratory test result ICD Codes: R89.9 - Unspecified abnormal finding in specimens from other organs , systems and tissues SNOMED: 905871659 Status: stable, not improved Assessment/Plan cont ivf compliance stressed psych eval renal eval monitor renal fxn/volume status Subjective ROS Limited/Unobtainable: Yes Constitutional: Reports: no symptoms HEENT: Reports: no symptoms Cardiovascular: Reports: no symptoms Respiratory: Reports: no symptoms Gastrointestinal/Abdominal: Reports: no symptoms Genitourinary: Reports: no symptoms Neurologic/Psychiatric: Reports: no symptoms Endocrine: Reports: no symptoms Hematologic/Lymphatic: Reports: no symptoms Allergies: Coded Allergies: No Known Allergies (Unverified , 05/08/16) All Systems: reviewed and negative except above Subjective uncooperative. confused. agitated at times. renal fxn not better Objective Last 24 Hour Vital Signs Date Time Temp Pulse Resp B/P (MAP) Pulse Ox O2 Delivery O2 Flow Rate FiO2 11/17/16 00:04 97.0 62 20 186/82 95 Room Air 11/16/16 23:50 186/82 11/16/16 20:00 97.3 74 20 186/97 95 Room Air 11/16/16 19:13 164/99 11/16/16 16:26 97.0 80 20 164/99 98 Room Air 11/16/16 09:33 64 145/75 Height (Feet): 5 Height (Inches): 9.00 Weight (Pounds): 200 Objective GENERAL: The patient is well-developed male, in no apparent distress. He is awake, alert, and oriented to only person and place. HEENT: His pupils are equal, round, and reactive to light. Sclerae anicteric. Oropharynx clear. NECK: Supple. HEART: Regular rate and rhythm. LUNGS: Clear. ABDOMEN: Soft, nontender, and nondistended. EXTREMITIES: Without clubbing, cyanosis, or edema. CHUCK HAAS Nov 17, 2016 09:20
--- NOTE | 2016-11-17 20:45 | Consultation ---
DATE OF CONSULTATION: HISTORY OF PRESENT ILLNESS: This is an 81-year-old male with a history of multiple medical problems, which includes peripheral vascular disease, prostate cancer, gastritis, glaucoma, hypertension as well as chronic renal failure who has been admitted to the hospital due to acute on chronic renal failure and altered mental status. The patient presented with agitation and is confused and disoriented, presents with waxing and waning consciousness, unable to provide history. The patient presented with lab abnormality and that is why he was transferred to the [facility] for further evaluation and treatment. The patient is more agitated during the night. Most of the history was through the chart as the patient is a poor historian. PAST PSYCHIATRIC HISTORY: The patient has a history of behavioral issues. He has been treated with risperidone prior to the admission. There are no records that the patient has a history of psychiatric illness or has been to a psychiatric hospital. PAST MEDICAL HISTORY: 1. Hypertension. 2. Chronic kidney disease. 3. Peripheral vascular disease. 4. Prostate cancer. 5. Gastritis. 6. Glaucoma. 7. Agitation. PAST SURGICAL HISTORY: Prostate surgery. ALLERGIES: No known drug allergies. CURRENT MEDICATION: The medication list was reconciled and reviewed. SUBSTANCE ABUSE HISTORY: The patient has no history of illicit drug use or alcohol. The patient is nonsmoker. MENTAL STATUS EXAMINATION: The patient is alert and oriented to to self and place, however, he is unable to understand the situation that he is in. He has been refusing the morning medications. He is combative. Mood is irritable. Affect is constricted. Congruent with mood. Thought process is disorganized. Thought content, there is a paucity of thought content. Memory is impaired. ASSESSMENT: [place] I Acute encephalopathy. [place] II Deferred. [place] III As above. [place] IV Low. [place] V Global assessment of functioning is 20. PLAN: 1. We will start the patient on Haldol 5 mg IM every eight hours p.r.n. anxiety and agitation. 2. The patient is already on risperidone, we will change the dosage to 2 mg p.o. nightly. 3. The patient is also on Tegretol, unsure whether this is for seizure disorder or bipolar disorder. 4. We will continue follow and readjust the medications. Rachel Payton M.D. DR: Norah JOB#: [id number] CC:
--- NOTE | 2016-11-17 22:15 | Consultation ---
DATE OF CONSULTATION: 11/17/2016 NEPHROLOGY CONSULTATION CONSULTING PHYSICIAN: Rory Falcon M.D. REFERRING PHYSICIAN: Fausto Garay M.D. REASON FOR CONSULTATION: Acute on chronic kidney failure. HISTORY OF PRESENT ILLNESS: The patient is an 81-year-old male with a history of chronic kidney disease. On his last admission, he had a creatinine of 4, fell to 3.0 with a BUN of 35 on discharge in May of this year. Current BUN 54, creatinine 3.7. The patient has had a diarrhea recently. He is a poor historian. There is a history of diabetes, seizure disorder, prostate cancer, peripheral vascular disease, hypertension, and gastritis. Apparently, he had a baseline creatinine around 2 in the past, but we have to look back to the old records and see if this is accurate. The patient had abnormal laboratories and diarrhea and was admitted to the hospital. He has a history of hypertension with elevated blood pressures over 200 in the past. PAST SURGICAL HISTORY: Includes prostate surgery. ALLERGIES: None known. MEDICATIONS: Medications at the [facility] include the following: Tylenol, amlodipine, atenolol, Ativan, carbamazepine, Combigan eye drops, DSS, dorzolamide eye drops, Epogen, ferrous sulfate, finasteride, latanoprost eye drops, multivitamins, omeprazole, Risperdal, sodium citrate, and tamsulosin. SYSTEM REVIEW: HEENT: He has a history of glaucoma. No recent change in vision. Hearing appears to be good. ENDOCRINE: History of diabetes. No definite thyroid disease. PULMONARY: He states he has shortness of breath intermittently. There is a history of cigarette smoking. CARDIAC: History of hypertensive heart disease. Denies chest pain. GASTROINTESTINAL: Diarrhea recently. GENITOURINARY: Incontinent of urine. NEUROLOGIC: History of seizures and possible remote stroke. PHYSICAL EXAMINATION: GENERAL: The patient is lying in bed, in no acute distress. He keeps his eyes closed during the exam. VITAL SIGNS: Temperature 97.6, pulse 65, respirations 20, and blood pressure 185/77. HEENT: He keeps his eyes closed. Oral mucosa slightly dry. NECK: No adenopathy or thyroid enlargement. LUNGS: Clear. HEART: Regular rhythm. I hear no murmur. ABDOMEN: Soft. I am unable to feel liver or spleen. There is no percussible bladder distention. EXTREMITIES: Show moderate muscle wasting. Some degenerative changes in the knees. Contractures in the left hand. No edema, cyanosis, or clubbing. NEUROLOGIC: The patient is withdrawn, keeps his eyes closed during the exam. 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 He moves all extremities. PERTINENT LABORATORY DATA: Show a white count of 4.2, hemoglobin is 10.3. BUN 54, creatinine 3.7. Sodium 139, potassium 4.4, chloride 102, CO2 of 25. Total CK 421. Albumin is 3.5. Glucose 124. IMPRESSION: 1. Acute on chronic kidney disease, likely dehydration from diarrhea, superimposed on chronic kidney disease, stage 4 or 5. 2. Echogenic and small kidneys on renal ultrasound without any hydronephrosis. 3. Diarrhea, recent onset. 4. History of prior cerebrovascular accident. 5. History of epilepsy. 6. History of schizophrenia. 7. Mild rhabdomyolysis, likely not contributing to kidney injury. PLAN: I will continue the patient on IV hydration and monitor his renal function. He is a poor candidate for long-term dialysis. We will discuss with the family once the dialysis access could be placed in the near future, electively to prepare for future care, but given his overall condition, I think he can be treated medically at this time, hold off on dialysis. Thank you so much. Rory Falcon M.D. : BASHIR JOB#: [id number] CC:
[2016-11-18] VITALS: BP 147/99
[2016-11-18 04:00] VITALS: BP 200/99
--- NOTE | 2016-11-18 04:15 | Progress Note ---
DATE: 11/17/2016 CARDIOLOGY PROGRESS NOTE SUBJECTIVE: The patient remains uncooperative, confused, and agitated. It is difficult to continue IV fluid hydration. OBJECTIVE: VITAL SIGNS: His blood pressure is labile again up to 186/82, today heart rate 62, respiratory rate 20, and he is afebrile. NECK: Supple. LUNGS: Clear. CARDIAC: Regular rhythm and rate. Normal S1 and S2 with a fourth heart sound. ABDOMEN: Soft. EXTREMITIES: No acute ischemic changes. No edema. LABORATORY DATA: No new labs today. IMPRESSION: 1. Hypertensive urgency. 2. Hypertensive heart disease. 3. Acute encephalopathy, metabolic and toxic. 4. Acute renal failure. 5. Dementia with agitation. 6. Prostatic hypertrophy. PLAN: Intravenous fluid hydration with increased dosing. Clonidine p.r.n. for blood pressure spikes. Continue atenolol and amlodipine for baseline blood pressure control. Psychotropic therapy reviewed and titrated. We will follow based on clinical parameters, cardiorenal parameters, and laboratory studies, making adjustments in therapy. Artem Byers M.D. DR: Neto JOB#: [id number] CC:
[2016-11-18 07:39] LABS: ANION GAP 13 (5-15); CARBON DIOXIDE 24 mEQ/L (20-30); CHLORIDE 103 mEQ/L (98-107); CREATININE 3.8 mg/dL (0.7-1.2); HEMOLYSIS 0; SODIUM 140 mEQ/L (135-145)
[2016-11-18 08:00] VITALS: BP 162/77
[2016-11-18] MEDS: Heparin 5000 units/ml inj SUBQ SCH ×2 (09:00→22:38)
--- NOTE | 2016-11-18 09:29 | General Progress Note ---
Assessment/Plan Problem List: (1) Anemia ICD Codes: D64.9 - Anemia, unspecified SNOMED: 905263021 (2) Acute renal failure ICD Codes: N17.9 - Acute kidney failure, unspecified SNOMED: 24826936 Qualifiers: Qualified Codes: N17.9 - Acute kidney failure, unspecified (3) CKD (chronic kidney disease) stage 5, GFR less than 15 ml/min ICD Codes: N18.5 - Chronic kidney disease, stage 5 SNOMED: 280843914 (4) Fever ICD Codes: R50.9 - Fever, unspecified SNOMED: 571155116 (5) Abnormal laboratory test result ICD Codes: R89.9 - Unspecified abnormal finding in specimens from other organs , systems and tissues SNOMED: 526727342 Status: stable, progressing Assessment/Plan cont ivf per renal compliance stressed psych eval appreciated renal eval appreciated monitor renal fxn/volume status added hydralazine- bp still high Subjective ROS Limited/Unobtainable: No Constitutional: Reports: malaise, weakness HEENT: Reports: no symptoms Cardiovascular: Reports: no symptoms Respiratory: Reports: no symptoms Gastrointestinal/Abdominal: Reports: no symptoms Genitourinary: Reports: no symptoms Neurologic/Psychiatric: Reports: anxiety, emotional problems Endocrine: Reports: no symptoms Hematologic/Lymphatic: Reports: anemia Allergies: Coded Allergies: No Known Allergies (Unverified , 05/08/16) All Systems: reviewed and negative except above Subjective uncooperative. confused. agitated at times. renal fxn not better. remains on ivf. at times noncompliant with meds. per RN usually takes most of his bp meds Objective Last 24 Hour Vital Signs Date Time Temp Pulse Resp B/P (MAP) Pulse Ox O2 Delivery O2 Flow Rate FiO2 11/18/16 08:00 98.2 59 20 162/77 99 Room Air 11/18/16 04:12 200/99 11/18/16 04:00 97.5 64 20 200/99 Room Air 11/18/16 00:00 97.9 63 18 147/99 99 Room Air 11/17/16 20:00 97.9 69 17 152/82 100 Room Air 11/17/16 17:57 56 134/59 11/17/16 17:27 64 20 156/76 11/17/16 15:34 97.5 61 20 174/88 98 Room Air 11/17/16 15:28 174/88 11/17/16 12:39 65 185/77 11/17/16 12:39 65 185/77 11/17/16 11:39 97.6 65 20 185/77 96 Room Air 11/17/16 10:24 97.3 70 20 176/79 98 Room Air Laboratory Tests 11/18/16 06:05: Sodium Level 140, Potassium Level 5.0H, Chloride Level 103, Carbon Dioxide Level 24, Anion Gap 13, Blood Urea Nitrogen 56H, Creatinine 3.8H, Estimat Glomerular Filtration Rate , Glucose Level 95, Calcium Level 8.0L, Pro-B-Type Natriuretic Peptide 2275H Height (Feet): 5 Height (Inches): 9.00 Weight (Pounds): 200 Objective GENERAL: The patient is well-developed male, in no apparent distress. He is awake, alert, and oriented to only person and place. HEENT: His pupils are equal, round, and reactive to light. Sclerae anicteric. Oropharynx clear. NECK: Supple. HEART: Regular rate and rhythm. LUNGS: Clear. ABDOMEN: Soft, nontender, and nondistended. EXTREMITIES: Without clubbing, cyanosis, or edema. CHUCK HAAS Nov 18, 2016 09:29
[2016-11-18] MEDS: Dorzolamide 2% Btl BOTH EYES SCH ×2 (09:53→17:55)
[2016-11-18] MEDS: Sodium Citrate 30ml ORAL SCH ×3 (09:54→17:55)
[2016-11-18] MEDS: Aspirin Baby 81mg ORAL SCH (09:55)
[2016-11-18] MEDS: Tamsulosin 0.4mg cap ORAL SCH (09:55)
[2016-11-18] MEDS: Multivitamin w/Minerals tab ORAL SCH (09:55)
[2016-11-18] MEDS: Docusate 100mg cap ORAL SCH (09:56)
[2016-11-18] MEDS: carBAMazepine 200mg tab ORAL SCH ×2 (09:56→17:55)
[2016-11-18] MEDS: HydrALAZINE 50mg tab ORAL SCH ×3 (10:08→22:35)
[2016-11-18 12:00] VITALS: BP 202/90
--- NOTE | 2016-11-18 14:04 | Nephrology Progress Note ---
Assessment/Plan Problem List: (1) Dehydration (2) CKD (chronic kidney disease) stage 5, GFR less than 15 ml/min (3) Epilepsy (4) Anemia in chronic kidney disease Plan continue hydration, serial lab Subjective ROS Limited/Unobtainable: Yes Objective Objective Last 24 Hour Vital Signs Date Time Temp Pulse Resp B/P (MAP) Pulse Ox O2 Delivery O2 Flow Rate FiO2 11/18/16 12:29 202/90 11/18/16 12:28 202/90 11/18/16 12:00 97.5 67 20 90 99 Room Air 11/18/16 10:08 162/77 11/18/16 09:57 59 162/77 11/18/16 09:54 59 162/77 11/18/16 08:00 98.2 59 20 162/77 99 Room Air 11/18/16 04:12 200/99 11/18/16 04:00 97.5 64 20 200/99 Room Air 11/18/16 00:00 97.9 63 18 147/99 99 Room Air 11/17/16 20:00 97.9 69 17 152/82 100 Room Air 11/17/16 17:57 56 134/59 11/17/16 17:27 64 20 156/76 11/17/16 15:34 97.5 61 20 174/88 98 Room Air 11/17/16 15:28 174/88 Intake and Output 11/18/16 11/19/16 19:00 07:00 Intake Total 625 ml Balance 625 ml IV Total 625 ml Laboratory Tests 11/18/16 06:05: Sodium Level 140, Potassium Level 5.0H, Chloride Level 103, Carbon Dioxide Level 24, Anion Gap 13, Blood Urea Nitrogen 56H, Creatinine 3.8H, Estimat Glomerular Filtration Rate , Glucose Level 95, Calcium Level 8.0L, Pro-B-Type Natriuretic Peptide 2275H Height (Feet): 5 Height (Inches): 9.00 Weight (Pounds): 200 General Appearance: no apparent distress EENT: other - eyes closed Neck: normal alignment Cardiovascular: normal rate, regular rhythm Respiratory/Chest: lungs clear Abdomen: non tender Extremities: other - no edema Neurologic: motor weakness, disoriented XI FUENTES Nov 18, 2016 14:04
[2016-11-18 16:00] VITALS: BP 124/89
[2016-11-18 20:00] VITALS: BP 149/86
--- NOTE | 2016-11-18 23:26 | General Progress Note ---
Assessment/Plan Status: progressing Assessment/Plan schizophrenia by hx delirium risperdal dc ativan haldol im Subjective Neurologic/Psychiatric: Reports: anxiety, emotional problems Allergies: Coded Allergies: No Known Allergies (Unverified , 05/08/16) Subjective calm and asleep during my eval. was arousable confused oriented to self and place. decreased episodes of agitation. ativan was given however no haldol/ Objective Last 24 Hour Vital Signs Date Time Temp Pulse Resp B/P (MAP) Pulse Ox O2 Delivery O2 Flow Rate FiO2 11/18/16 22:35 149/86 11/18/16 20:00 98.6 76 18 149/86 100 Room Air 11/18/16 16:00 98.4 60 14 124/89 98 Room Air 11/18/16 12:29 202/90 11/18/16 12:28 202/90 11/18/16 12:00 97.5 67 20 202/90 99 Room Air 11/18/16 10:08 162/77 11/18/16 09:57 59 162/77 11/18/16 09:54 59 162/77 11/18/16 08:00 98.2 59 20 162/77 99 Room Air 11/18/16 04:12 200/99 11/18/16 04:00 97.5 64 20 200/99 Room Air 11/18/16 00:00 97.9 63 18 147/99 99 Room Air Intake and Output 11/18/16 11/19/16 19:00 07:00 Intake Total 1375 ml Balance 1375 ml IV Total 1375 ml # Bowel Movements 1 Laboratory Tests 11/18/16 06:05: Sodium Level 140, Potassium Level 5.0H, Chloride Level 103, Carbon Dioxide Level 24, Anion Gap 13, Blood Urea Nitrogen 56H, Creatinine 3.8H, Estimat Glomerular Filtration Rate , Glucose Level 95, Calcium Level 8.0L, Pro-B-Type Natriuretic Peptide 2275H Height (Feet): 5 Height (Inches): 9.00 Weight (Pounds): 200 General Appearance: no apparent distress, confused Neurologic: alert, responsive, disoriented, depressed affect Rachel Payton M.D. Nov 18, 2016 23:26
[2016-11-19] VITALS: BP 177/89
[2016-11-19 04:00] VITALS: BP 143/91
--- NOTE | 2016-11-19 04:45 | Progress Note ---
DATE: 11/18/2016 CARDIOLOGY PROGRESS NOTE SUBJECTIVE: The patient remains confused, agitated, and uncooperative. He remains on IV fluids. He is noncompliant with medications. His oral intake is poor. He has taken most of his blood pressure medications according to the staff. His blood pressure remains quite elevated. PHYSICAL EXAMINATION: VITAL SIGNS: Blood pressure 200/99 earlier now 162/77, heart rate 59, and respiratory rate 20. He is afebrile. NECK: Supple. LUNGS: Clear. CARDIAC: Regular rhythm and rate. Normal S1 and S2 with a fourth heart sound. ABDOMEN: Soft. EXTREMITIES: With no edema. LABORATORY DATA: Sodium 140, potassium 5.0, bicarbonate 24, BUN 56, and creatinine 3.8. Pro-natriuretic peptide is 2275. IMPRESSION: 1. Toxic and metabolic encephalopathies. 2. Hypertensive urgency. 3. Acute on chronic renal failure. 4. Acute on chronic diastolic congestive heart failure. 5. Dementia with agitation. PLAN: 1. Continue hydration. 2. Monitor cardiorenal parameters and volume status. 3. Hydralazine added. 4. Titrate antihypertensive. 5. Progressive bradycardia on beta-donnell. 6. We will watch for precipitous drop in blood pressure. If patient's agitation decreases and compliance with all medications improves, at that point we will have to be fine tune his regimen accordingly. Artem Byers M.D. DR: DENA JOB#: [id number] CC:
--- NOTE | 2016-11-19 05:30 | Consultation ---
DATE OF CONSULTATION: 11/15/2016 CARDIOLOGY CONSULTATION REQUESTING PHYSICIAN: Fausto Garay M.D. REASON FOR CONSULTATION: Uncontrolled hypertension. HISTORY OF PRESENT ILLNESS: This is an 81-year-old male, who has multiple medical problems and was brought into the emergency room for evaluation of abnormal laboratory studies. His baseline creatinine had doubled from 2 to 4. He was also noted to have significantly elevated blood pressure readings in the emergency room and I have been asked to assist with further care. Of note, records revealed blood pressure readings above 200 systolic. PAST MEDICAL HISTORY: Hypertension, peripheral artery disease, chronic kidney disease, gastritis, prostate cancer, cerebrovascular disease with dementia, seizure disorder, and type 2 diabetes mellitus. ALLERGIES: None. MEDICATIONS: Reviewed and reconciled. FAMILY HISTORY: Not known. SOCIAL HISTORY: He is an active smoker 50 plus pack years. No alcohol or substance abuse. REVIEW OF SYSTEMS: He was hospitalized here in May of this year with acute on chronic renal failure improved. He denies chest pain. No leg swelling. There is no history of pericardial effusion. There is no history of thyroid disorder. His diabetes is managed with oral therapy. He has not had any recent seizures. He does have cerebrovascular disease with dementia and history of agitation. He denies any change in bowel habits. PHYSICAL EXAMINATION: VITAL SIGNS: Blood pressure up to 216/87, heart rate 51, and respiratory rate 14. HEENT: Temporal wasting. Pale conjunctivae. Oropharynx clear. Mucous membranes dry. NECK: Supple. Jugular venous pressure normal. LUNGS: Clear. CARDIAC: Regular rhythm and rate. Normal S1 and S2 with a fourth heart sound. ABDOMEN: Soft and nontender. No guarding, rebound, or bruits. EXTREMITIES: Diminished distal pulses. Adequate capillary refill. No edema. LABORATORY AND DIAGNOSTIC DATA: Potassium 4.6, BUN 56, and creatinine 3.5. White count 4.2 and hemoglobin 10. EKG revealed sinus bradycardia at 58 beats per minute. Nonspecific ST changes. Chest x-ray reveals no acute process. IMPRESSION: 1. Hypertensive urgency. 2. Acute on chronic renal failure. 3. Hypertensive heart disease. 4. Type 2 diabetes mellitus with complications. 5. Peripheral artery disease with no signs of acute ischemia. 6. Cerebrovascular disease with dementia. 7. Acute encephalopathy likely metabolic. 8. Sinus bradycardia of no clinical significance at this time. PLAN: 1. Hydration. 2. Avoid angiotensin-converting enzyme inhibitors and angiotensin receptor blockers. 3. Monitor vital signs for signs of progressive bradycardia. 4. Titrate beta-donnell dosing as such. 5. Continue amlodipine and titrate for optimal blood pressure control. 6. Additional therapy will be added on a stepwise basis based on clinical parameters. 7. Antiplatelet therapy with caution. 8. Consider further central nervous system imaging if neurologic parameters deteriorate. Artem Byers M.D. DR: DENA JOB#: [id number] CC:
--- NOTE | 2016-11-19 05:30 | Progress Note ---
DATE: 11/16/2016 CARDIOLOGY PROGRESS NOTE SUBJECTIVE: The patient was seen and evaluated. He is confused. He is alert and he is oriented x2. He has agitation. He refuses therapy at times. OBJECTIVE: VITAL SIGNS: Blood pressure 164/99, pulse 80, and respirations 20. Afebrile. NECK: Supple. LUNGS: Clear. CARDIAC: Regular. Normal S1 and S2 with a fourth heart sound. ABDOMEN: Soft. EXTREMITIES: No edema. Distal pulses diminished, but capillary refill adequate. No acute ischemic changes seen. IMPRESSION: 1. Hypertensive urgency. 2. Acute on chronic renal failure. 3. Dementia with agitation. 4. Encephalopathy, multifactorial. 5. Type 2 diabetes mellitus. 6. Sinus bradycardia, on beta-donnell therapy. PLAN: 1. Continue hydration. 2. Continue cautious titration of antihypertensives. 3. Continue beta blockade with down titration if heart rate remain below 55. 4. DVT prophylaxis. 5. Antiplatelets therapy. 6. Consider CT imaging of the brain if no improvement in neurologic parameters. Artem Byers M.D. DR: REENA JOB#: [id number] CC:
[2016-11-19] MEDS: HydrALAZINE 50mg tab ORAL SCH ×3 (05:36→21:00)
[2016-11-19 07:51] VITALS: BP 160/73
[2016-11-19 08:01] LABS: ALANINE AMINOTRANSFERASE 6 U/L (3-41); ALBUMIN/GLOBULIN RATIO 1.1 (1.0-2.7); ANION GAP 12 (5-15); ASPARTATE AMINO TRANSFERASE 8 U/L (5-40); CALCIUM 7.9 mg/dL (8.6-10.2); CARBON DIOXIDE 23 mEQ/L (20-30); CHLORIDE 106 mEQ/L (98-107); CREATININE 3.7 mg/dL (0.7-1.2); HEMOLYSIS 3; POTASSIUM 4.5 mEQ/L (3.4-4.9); SODIUM 141 mEQ/L (135-145); TOTAL PROTEIN 5.6 g/dL (6.6-8.7)
[2016-11-19] MEDS: Aspirin Baby 81mg ORAL SCH (08:48)
[2016-11-19] MEDS: Tamsulosin 0.4mg cap ORAL SCH (08:49)
[2016-11-19] MEDS: carBAMazepine 200mg tab ORAL SCH ×2 (08:49→18:07)
[2016-11-19] MEDS: Heparin 5000 units/ml inj SUBQ SCH ×2 (08:49→21:00)
[2016-11-19] MEDS: Docusate 100mg cap ORAL SCH (08:49)
--- NOTE | 2016-11-19 09:02 | General Progress Note ---
Assessment/Plan Problem List: (1) Anemia ICD Codes: D64.9 - Anemia, unspecified SNOMED: 162764825 (2) Acute renal failure ICD Codes: N17.9 - Acute kidney failure, unspecified SNOMED: 37534575 Qualifiers: Qualified Codes: N17.9 - Acute kidney failure, unspecified (3) CKD (chronic kidney disease) stage 5, GFR less than 15 ml/min ICD Codes: N18.5 - Chronic kidney disease, stage 5 SNOMED: 226764738 (4) Fever ICD Codes: R50.9 - Fever, unspecified SNOMED: 616816153 (5) Abnormal laboratory test result ICD Codes: R89.9 - Unspecified abnormal finding in specimens from other organs , systems and tissues SNOMED: 466936406 Status: stable, not improved Assessment/Plan cont ivf per renal compliance stressed monitor renal fxn/volume status cont bp rx. titrate as needed Subjective ROS Limited/Unobtainable: No Constitutional: Reports: malaise, weakness HEENT: Reports: no symptoms Cardiovascular: Reports: no symptoms Respiratory: Reports: no symptoms Gastrointestinal/Abdominal: Reports: no symptoms Genitourinary: Reports: no symptoms Neurologic/Psychiatric: Reports: pre-existing deficit Endocrine: Reports: no symptoms Hematologic/Lymphatic: Reports: no symptoms Allergies: Coded Allergies: No Known Allergies (Unverified , 05/08/16) All Systems: reviewed and negative except above Subjective compliant with meds. a little confused. agitated at times. renal fxn not better. remains on ivf. Objective Last 24 Hour Vital Signs Date Time Temp Pulse Resp B/P (MAP) Pulse Ox O2 Delivery O2 Flow Rate FiO2 11/19/16 08:48 83 160/73 11/19/16 08:48 83 160/73 11/19/16 07:51 98.2 83 20 160/73 99 Room Air 11/19/16 05:36 143/91 11/19/16 04:00 98.2 87 18 143/91 97 Room Air 11/19/16 00:00 98.2 85 18 177/89 98 Room Air 11/18/16 22:35 149/86 11/18/16 20:00 98.6 76 18 149/86 100 Room Air 11/18/16 16:00 98.4 60 14 124/89 98 Room Air 11/18/16 12:29 11/18/16 12:28 11/18/16 12:00 97.5 67 20 99 Room Air 11/18/16 10:08 162/77 11/18/16 09:57 59 16211/18/16 09:54 59 Intake and Output 11/19/16 11/20/16 19:00 07:00 Intake Total 120 ml Balance 120 ml Intake Oral 120 ml # Voids 1 # Bowel Movements 1 Laboratory Tests 11/19/16 06:05: Sodium Level 141, Potassium Level 4.5, Chloride Level 106, Carbon Dioxide Level 23, Anion Gap 12, Blood Urea Nitrogen 54H, Creatinine 3.7H, Estimat Glomerular Filtration Rate , Glucose Level 99, Calcium Level 7.9L, Total Bilirubin 0.2, Aspartate Amino Transf (AST/SGOT) 8, Alanine Aminotransferase (ALT/SGPT) 6, Alkaline Phosphatase 73, Total Protein 5.6L, Albumin 3.0L, Globulin 2.6, Albumin /Globulin Ratio 1.1 Height (Feet): 5 Height (Inches): 9.00 Weight (Pounds): 200 Objective GENERAL: The patient is well-developed male, in no apparent distress. He is awake, alert, and oriented to only person and place. HEENT: His pupils are equal, round, and reactive to light. Sclerae anicteric. Oropharynx clear. NECK: Supple. HEART: Regular rate and rhythm. LUNGS: Clear. ABDOMEN: Soft, nontender, and nondistended. EXTREMITIES: Without clubbing, cyanosis, or edema. CHUCK HAAS Nov 19, 2016 09:02
[2016-11-19] MEDS: Multivitamin w/Minerals tab ORAL SCH (09:21)
[2016-11-19] MEDS: Sodium Citrate 30ml ORAL SCH ×4 (09:21→18:07)
[2016-11-19] MEDS: Dorzolamide 2% Btl BOTH EYES SCH ×3 (09:22→18:09)
[2016-11-19 12:02] VITALS: BP 144/86
--- NOTE | 2016-11-19 13:48 | Geriatric Progress Note ---
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 -cont risperdal -cont haldol prn Subjective Mood/Memory: Reports: prior hx, anxiety, depressed feelings, emotional problems Sleep: Reports: sleeps well Geriatric Geriatric Last 24 Hour Vital Signs Date Time Temp Pulse Resp B/P (MAP) Pulse Ox O2 Delivery O2 Flow Rate FiO2 11/19/16 12:40 144/86 11/19/16 12:02 98.3 88 20 144/86 98 Room Air 11/19/16 08:48 83 160/73 11/19/16 08:48 83 160/73 11/19/16 07:51 98.2 83 20 160/73 99 Room Air 11/19/16 05:36 143/91 11/19/16 04:00 98.2 87 18 143/91 97 Room Air 11/19/16 00:00 98.2 85 18 177/89 98 Room Air 11/18/16 22:35 149/86 11/18/16 20:00 98.6 76 18 149/86 100 Room Air 11/18/16 16:00 98.4 60 14 124/89 98 Room Air Intake and Output 11/19/16 11/20/16 19:00 07:00 Intake Total 360 ml Balance 360 ml Intake Oral 360 ml # Voids 4 # Bowel Movements 2 Laboratory Tests Test 11/19/16 06:05 Sodium Level 141 mEQ/L (135-145) Potassium Level 4.5 mEQ/L (3.4-4.9) Chloride Level 106 mEQ/L (98-107) Carbon Dioxide Level 23 mEQ/L (20-30) Anion Gap 12 (5-15) Blood Urea Nitrogen 54 mg/dL (7-23) H Creatinine 3.7 mg/dL (0.7-1.2) H Estimat Glomerular Filtration Rate mL/min (>60) Glucose Level 99 mg/dL (74-106) Calcium Level 7.9 mg/dL (8.6-10.2) L Total Bilirubin 0.2 mg/dL (0.0-1.2) Aspartate Amino Transf (AST/SGOT) 8 U/L (5-40) Alanine Aminotransferase (ALT/SGPT) 6 U/L (3-41) Alkaline Phosphatase 73 U/L (40-129) Total Protein 5.6 g/dL (6.6-8.7) L Albumin 3.0 g/dL (3.5-5.2) L Globulin 2.6 g/dL Albumin/Globulin Ratio 1.1 (1.0-2.7) Current Medications Medications (Trade) Dose Ordered Sig/Gregorio Route PRN Reason Start Time Stop Time Status Last Admin Dose Admin Acetaminophen (Tylenol) 500 mg Q4H PRN ORAL Mild Pain/Temp > 100.5 11/15/16 21:45 12/15/16 21:44 Amlodipine Besylate (Norvasc) 10 mg DAILY ORAL 11/16/16 09:00 12/16/16 08:59 11/19/16 08:48 Aspirin (ASA) 81 mg DAILY ORAL 11/16/16 09:00 12/16/16 08:59 11/19/16 08:48 Atenolol (Tenormin) 100 mg DAILY ORAL 11/16/16 09:00 12/16/16 08:59 11/19/16 08:48 Carbamazepine (TEGretol) 200 mg BID ORAL 11/16/16 09:00 12/16/16 08:59 11/19/16 08:49 Clonidine HCl (Catapres) 0.1 mg Q4H PRN ORAL SBP>160 11/16/16 11:45 12/16/16 11:44 11/18/16 12:29 Docusate Sodium (Colace) 200 mg DAILY ORAL 11/16/16 09:00 12/16/16 08:59 11/19/16 08:49 Dorzolamide HCl (Trusopt) 1 drop BID BOTH EYES 11/16/16 09:00 12/16/16 08:59 11/19/16 09:22 Ferrous Sulfate (Feosol) 650 mg DAILY ORAL 11/16/16 09:00 12/16/16 08:59 11/19/16 08:48 Finasteride (Proscar) 5 mg DAILY ORAL 11/16/16 09:00 12/16/16 08:59 11/19/16 08:48 Haloperidol Lactate (Haldol) 5 mg EVERY 8 HOURS PRN IM Agitation 11/17/16 11:30 12/17/16 11:29 Heparin Sodium (Porcine) (Heparin 5000 units/ml) 5,000 units EVERY 12 HOURS SUBQ 11/16/16 09:00 12/16/16 08:59 11/18/16 22:38 Hydralazine HCl (Apresoline) 50 mg Q8HR ORAL 11/18/16 09:30 12/18/16 09:29 11/19/16 12:40 Latanoprost (Xalatan) 1 drop BEDTIME BOTH EYES 11/16/16 21:00 12/16/16 20:59 11/18/16 22:34 Multivitamins Therapeutic (Therapeutic Multivitamin) 1 ea DAILY ORAL 11/16/16 09:00 12/16/16 08:59 11/19/16 09:21 Pantoprazole (Protonix) 40 mg DAILY ORAL 11/16/16 09:00 12/16/16 08:59 11/19/16 08:48 Risperidone (RisperDAL) 1 mg BID ORAL 11/16/16 09:00 12/16/16 08:59 11/19/16 08:48 Sodium Chloride 1,000 ml @ 125 mls/hr Q8H IV 11/17/16 14:00 12/17/16 13:59 11/19/16 05:35 Sodium Citrate (Bicitra) 30 ml TID ORAL 11/16/16 09:00 12/16/16 08:59 11/19/16 12:39 Tamsulosin HCl (Flomax) 0.4 mg DAILY ORAL 11/16/16 09:00 12/16/16 08:59 11/19/16 08:49 Height (Feet): 5 Height (Inches): 9.00 Weight (Pounds): 200 General Appearance: well appearing, no apparent distress, alert, good eye contact Neurologic: alert, oriented x3 - only to self and place did not know the date, responsive Psychiatric Behavior: cooperative Language/Speech: intact Orientation: person, place Affect: appropriate Insight: poor Rachel Payton M.D. Nov 19, 2016 13:48
[2016-11-19 16:15] VITALS: BP 110/75
--- NOTE | 2016-11-19 17:21 | Nephrology Progress Note ---
Assessment/Plan Problem List: (1) Dehydration (2) CKD (chronic kidney disease) stage 5, GFR less than 15 ml/min (3) Epilepsy (4) Anemia in chronic kidney disease Plan reduce iv rate, serial lab Subjective ROS Limited/Unobtainable: Yes Objective Objective Last 24 Hour Vital Signs Date Time Temp Pulse Resp B/P (MAP) Pulse Ox O2 Delivery O2 Flow Rate FiO2 11/19/16 12:40 144/86 11/19/16 12:02 98.3 88 20 144/86 98 Room Air 11/19/16 08:48 83 160/73 11/19/16 08:48 83 160/73 11/19/16 07:51 98.2 83 20 160/73 99 Room Air 11/19/16 05:36 143/91 11/19/16 04:00 98.2 87 18 143/91 97 Room Air 11/19/16 00:00 98.2 85 18 177/89 98 Room Air 11/18/16 22:35 149/86 11/18/16 20:00 98.6 76 18 149/86 100 Room Air Intake and Output 11/19/16 11/20/16 19:00 07:00 Intake Total 1110 ml Balance 1110 ml Intake Oral 360 ml IV Total 750 ml # Voids 4 # Bowel Movements 2 Laboratory Tests 11/19/16 06:05: Sodium Level 141, Potassium Level 4.5, Chloride Level 106, Carbon Dioxide Level 23, Anion Gap 12, Blood Urea Nitrogen 54H, Creatinine 3.7H, Estimat Glomerular Filtration Rate , Glucose Level 99, Calcium Level 7.9L, Total Bilirubin 0.2, Aspartate Amino Transf (AST/SGOT) 8, Alanine Aminotransferase (ALT/SGPT) 6, Alkaline Phosphatase 73, Total Protein 5.6L, Albumin 3.0L, Globulin 2.6, Albumin /Globulin Ratio 1.1 Height (Feet): 5 Height (Inches): 9.00 Weight (Pounds): 200 General Appearance: no apparent distress, alert EENT: pharynx normal Neck: non-tender Cardiovascular: normal rate Respiratory/Chest: lungs clear Abdomen: non tender, soft Extremities: other - no edema XI FUENTES Nov 19, 2016 17:21
[2016-11-19] MEDS: Haloperidol 5mg/ml Inj IM PRN (18:15)
--- NOTE | 2016-11-19 18:47 | Cardiology Report ---
APPROVED REPORT EKG Measurement Heart [id number] Sinus bradycardia Minimal voltage criteria for LVH, may be normal variant Septal infarct, age undetermined Abnormal ECG
[2016-11-19 20:00] VITALS: BP 193/93
[2016-11-20] VITALS (7 sets, daily range): BP systolic 141–188; BP diastolic 77–96
[2016-11-20] MEDS: HydrALAZINE 50mg tab ORAL SCH ×3 (05:23→21:52)
[2016-11-20] MEDS: Heparin 5000 units/ml inj SUBQ SCH ×2 (09:00→20:38)
[2016-11-20] MEDS: Dorzolamide 2% Btl BOTH EYES SCH ×2 (09:09→18:05)
[2016-11-20] MEDS: Multivitamin w/Minerals tab ORAL SCH (09:09)
[2016-11-20] MEDS: Tamsulosin 0.4mg cap ORAL SCH (09:11)
[2016-11-20] MEDS: Aspirin Baby 81mg ORAL SCH (09:12)
[2016-11-20] MEDS: Docusate 100mg cap ORAL SCH (09:13)
[2016-11-20] MEDS: carBAMazepine 200mg tab ORAL SCH ×2 (09:15→18:05)
[2016-11-20] MEDS: Sodium Citrate 30ml ORAL SCH ×3 (09:15→18:04)
--- NOTE | 2016-11-20 09:21 | General Progress Note ---
Assessment/Plan Problem List: (1) Anemia ICD Codes: D64.9 - Anemia, unspecified SNOMED: 900923897 (2) Acute renal failure ICD Codes: N17.9 - Acute kidney failure, unspecified SNOMED: 59473815 Qualifiers: Qualified Codes: N17.9 - Acute kidney failure, unspecified (3) CKD (chronic kidney disease) stage 5, GFR less than 15 ml/min ICD Codes: N18.5 - Chronic kidney disease, stage 5 SNOMED: 637963187 (4) Fever ICD Codes: R50.9 - Fever, unspecified SNOMED: 676028826 (5) Abnormal laboratory test result ICD Codes: R89.9 - Unspecified abnormal finding in specimens from other organs , systems and tissues SNOMED: 160802163 Assessment/Plan cont ivf per renal compliance stressed monitor renal fxn/volume status cont bp rx. titrate as needed Subjective ROS Limited/Unobtainable: Yes Constitutional: Reports: malaise, weakness HEENT: Reports: no symptoms Cardiovascular: Reports: no symptoms Respiratory: Reports: no symptoms Gastrointestinal/Abdominal: Reports: no symptoms Genitourinary: Reports: no symptoms Neurologic/Psychiatric: Reports: anxiety, pre-existing deficit Endocrine: Reports: no symptoms Hematologic/Lymphatic: Reports: no symptoms Allergies: Coded Allergies: No Known Allergies (Unverified , 05/08/16) All Systems: reviewed and negative except above Subjective compliant with meds. a little confused. agitated at times. renal fxn not better. remains on ivf. bp still uncontrolled Objective Last 24 Hour Vital Signs Date Time Temp Pulse Resp B/P (MAP) Pulse Ox O2 Delivery O2 Flow Rate FiO2 11/20/16 09:11 69 183/88 11/20/16 09:10 69 183/88 11/20/16 08:25 97.6 69 20 183/88 99 Room Air 11/20/16 05:23 183/84 11/20/16 05:23 183/84 11/20/16 04:00 97.7 80 19 183/84 97 Room Air 11/20/16 00:00 97.6 75 20 178/78 96 Room Air 11/19/16 21:00 193/93 11/19/16 20:58 193/93 11/19/16 20:00 97.8 75 21 193/93 98 Room Air 11/19/16 16:15 97.6 70 18 110/75 96 Room Air 11/19/16 12:40 144/86 11/19/16 12:02 98.3 88 20 144/86 98 Room Air Height (Feet): 5 Height (Inches): 9.00 Weight (Pounds): 200 Objective GENERAL: The patient is well-developed male, in no apparent distress. He is awake, alert, and oriented to only person and place. HEENT: His pupils are equal, round, and reactive to light. Sclerae anicteric. Oropharynx clear. NECK: Supple. HEART: Regular rate and rhythm. LUNGS: Clear. ABDOMEN: Soft, nontender, and nondistended. EXTREMITIES: Without clubbing, cyanosis, or edema. CHUCK HAAS Nov 20, 2016 09:21
--- NOTE | 2016-11-20 13:09 | General Progress Note ---
Assessment/Plan Status: stable, progressing Assessment/Plan schizophrenia by hx delirium risperdal haldol im Subjective Constitutional: Reports: malaise, weakness Neurologic/Psychiatric: Reports: anxiety, emotional problems Allergies: Coded Allergies: No Known Allergies (Unverified , 05/08/16) Subjective confused oriented to self and place. decreased episodes of agitation. ativan was given however no haldol/ Objective Last 24 Hour Vital Signs Date Time Temp Pulse Resp B/P (MAP) Pulse Ox O2 Delivery O2 Flow Rate FiO2 11/20/16 11:38 188/90 11/20/16 11:32 98.2 81 20 188/90 98 Room Air 11/20/16 09:11 69 183/88 11/20/16 09:10 69 183/88 11/20/16 08:25 97.6 69 20 183/88 99 Room Air 11/20/16 05:23 183/84 11/20/16 05:23 183/84 11/20/16 04:00 97.7 80 19 183/84 97 Room Air 11/20/16 00:00 97.6 75 20 178/78 96 Room Air 11/19/16 21:00 193/93 11/19/16 20:58 193/93 11/19/16 20:00 97.8 75 21 193/93 98 Room Air 11/19/16 16:15 97.6 70 18 110/75 96 Room Air Height (Feet): 5 Height (Inches): 9.00 Weight (Pounds): 200 General Appearance: no apparent distress, alert, confused Neurologic: alert, responsive, depressed affect Rachel Payton M.D. Nov 20, 2016 13:09
--- NOTE | 2016-11-20 19:28 | Nephrology Progress Note ---
Assessment/Plan Problem List: (1) Dehydration (2) CKD (chronic kidney disease) stage 5, GFR less than 15 ml/min (3) Epilepsy (4) Anemia in chronic kidney disease Plan reduce iv rate, serial lab, add clonidine for bp Subjective Constitutional: Reports: no symptoms HEENT: Reports: blurred vision Genitourinary: Reports: no symptoms Neurologic/Psychiatric: Reports: no symptoms Objective Objective Last 24 Hour Vital Signs Date Time Temp Pulse Resp B/P (MAP) Pulse Ox O2 Delivery O2 Flow Rate FiO2 11/20/16 16:05 97.4 73 21 141/96 97 Room Air 11/20/16 13:52 166/77 11/20/16 13:20 98.1 78 20 166/77 98 Room Air 11/20/16 11:38 188/90 11/20/16 11:32 98.2 81 20 188/90 98 Room Air 11/20/16 09:11 69 183/88 11/20/16 09:10 69 183/88 11/20/16 08:25 97.6 69 20 183/88 99 Room Air 11/20/16 05:23 183/84 11/20/16 05:23 183/84 11/20/16 04:00 97.7 80 19 183/84 97 Room Air 11/20/16 00:00 97.6 75 20 178/78 96 Room Air 11/19/16 21:00 193/93 11/19/16 20:58 193/93 11/19/16 20:00 97.8 75 21 193/93 98 Room Air Intake and Output 11/20/16 11/21/16 19:00 07:00 Intake Total 1060 ml Output Total 500 ml Balance 560 ml Intake Oral 760 ml IV Total 300 ml Output Urine Total 500 ml # Voids 2 # Bowel Movements 3 Height (Feet): 5 Height (Inches): 9.00 Weight (Pounds): 200 General Appearance: no apparent distress EENT: other - poor vision Neck: normal alignment Cardiovascular: normal rate Respiratory/Chest: lungs clear Abdomen: non tender, soft Extremities: other - no edema Neurologic: alert, disoriented XI FUENTES Nov 20, 2016 19:28
[2016-11-20] MEDS: cloNIDine 0.2mg Tab ORAL SCH (20:37)
[2016-11-20] MEDS: Haloperidol 5mg/ml Inj IM PRN (21:52)
[2016-11-21] VITALS (7 sets, daily range): BP systolic 111–183; BP diastolic 53–92
[2016-11-21] MEDS: HydrALAZINE 50mg tab ORAL SCH ×2 (05:21→15:26)
[2016-11-21 06:25] LABS: BASOPHILS % (AUTO) 1.2 % (0.0-2.0); EOSINOPHILS % (AUTO) 2.7 % (0.0-3.0); LYMPHOCYTES % (AUTO) 30.8 % (20.0-45.0); MEAN CORPUSCULAR HEMOGLOBIN 33.3 PG (27.0-31.0); MEAN CORPUSCULAR HGB CONC 31.8 G/DL (32.0-36.0); MEAN CORPUSCULAR VOLUME 105 FL (80-99); MEAN PLATELET VOLUME 5.9 FL (6.5-10.1); MONOCYTES % (AUTO) 9.3 % (1.0-10.0); PLATELET COUNT 147 K/UL (150-450); RED BLOOD COUNT 2.88 M/UL (4.70-6.10); RED CELL DISTRIBUTION WIDTH 12.4 % (11.6-14.8); WHITE BLOOD COUNT 4.7 K/UL (4.8-10.8)
[2016-11-21 07:16] LABS: ALANINE AMINOTRANSFERASE 18 U/L (3-41); ALBUMIN/GLOBULIN RATIO 1.4 (1.0-2.7); ANION GAP 15 (5-15); ASPARTATE AMINO TRANSFERASE 21 U/L (5-40); CARBON DIOXIDE 22 mEQ/L (20-30); CHLORIDE 107 mEQ/L (98-107); CREATININE 3.8 mg/dL (0.7-1.2); HEMOLYSIS 23; POTASSIUM 5.6 mEQ/L (3.4-4.9); SODIUM 144 mEQ/L (135-145); TOTAL PROTEIN 6.3 g/dL (6.6-8.7)
--- NOTE | 2016-11-21 08:12 | General Progress Note ---
Assessment/Plan Problem List: (1) Anemia ICD Codes: D64.9 - Anemia, unspecified SNOMED: 456628472 (2) Acute renal failure ICD Codes: N17.9 - Acute kidney failure, unspecified SNOMED: 76513374 Qualifiers: Qualified Codes: N17.9 - Acute kidney failure, unspecified (3) CKD (chronic kidney disease) stage 5, GFR less than 15 ml/min ICD Codes: N18.5 - Chronic kidney disease, stage 5 SNOMED: 530301502 (4) Fever ICD Codes: R50.9 - Fever, unspecified SNOMED: 255795059 (5) Abnormal laboratory test result ICD Codes: R89.9 - Unspecified abnormal finding in specimens from other organs , systems and tissues SNOMED: 969044513 Status: stable, progressing Assessment/Plan dc ivf no iv access- pt refusing compliance stressed monitor renal fxn/volume status cont bp rx. titrate as needed kayexylate x 1 repeat bmp dc planning later today if labs ok and bp ok Subjective ROS Limited/Unobtainable: No Constitutional: Reports: malaise, weakness HEENT: Reports: no symptoms Cardiovascular: Reports: no symptoms Respiratory: Reports: no symptoms Gastrointestinal/Abdominal: Reports: no symptoms Genitourinary: Reports: no symptoms Neurologic/Psychiatric: Reports: anxiety, pre-existing deficit Endocrine: Reports: no symptoms Hematologic/Lymphatic: Reports: no symptoms Allergies: Coded Allergies: No Known Allergies (Unverified , 05/08/16) All Systems: reviewed and negative except above Subjective bp remains uncontrolled. pt compliant with meds but pulled out iv. Objective Last 24 Hour Vital Signs Date Time Temp Pulse Resp B/P (MAP) Pulse Ox O2 Delivery O2 Flow Rate FiO2 11/21/16 05:21 183/92 11/21/16 05:19 183/92 11/21/16 04:00 97.6 78 20 117/55 95 Room Air 11/21/16 00:00 97.2 67 20 159/79 95 Room Air 11/20/16 21:52 172/81 11/20/16 20:37 172/81 11/20/16 20:00 96.4 76 20 172/81 100 Room Air 11/20/16 16:05 97.4 73 21 141/96 97 Room Air 11/20/16 13:52 166/77 11/20/16 13:20 98.1 78 20 166/77 98 Room Air 11/20/16 11:38 188/90 11/20/16 11:32 98.2 81 20 188/90 98 Room Air 11/20/16 09:11 69 183/88 11/20/16 09:10 69 183/88 11/20/16 08:25 97.6 69 20 183/88 99 Room Air Laboratory Tests 11/21/16 04:35: White Blood Count 4.7L, Red Blood Count 2.88L, Hemoglobin 9.6L, Hematocrit 30.2L , Mean Corpuscular Volume 105H, Mean Corpuscular Hemoglobin 33.3H, Mean Corpuscular Hemoglobin Concent 31.8L, Red Cell Distribution Width 12.4, Platelet Count 147L, Mean Platelet Volume 5.9L, Neutrophils (%) (Auto) 56.0, Lymphocytes (%) (Auto) 30.8, Monocytes (%) (Auto) 9.3, Eosinophils (%) (Auto) 2.7, Basophils (%) (Auto) 1.2, Sodium Level 144, Potassium Level 5.6H, Chloride Level 107, Carbon Dioxide Level 22, Anion Gap 15, Blood Urea Nitrogen 52H, Creatinine 3.8H, Estimat Glomerular Filtration Rate , Glucose Level 101, Calcium Level 8.0L, Total Bilirubin 0.2, Aspartate Amino Transf (AST/SGOT) 21, Alanine Aminotransferase (ALT/SGPT) 18, Alkaline Phosphatase 87, Total Protein 6.3L, Albumin 3.7, Globulin 2.6, Albumin/Globulin Ratio 1.4 Height (Feet): 5 Height (Inches): 9.00 Weight (Pounds): 200 Objective GENERAL: The patient is well-developed male, in no apparent distress. He is awake, alert, and oriented to only person and place. HEENT: His pupils are equal, round, and reactive to light. Sclerae anicteric. Oropharynx clear. NECK: Supple. HEART: Regular rate and rhythm. LUNGS: Clear. ABDOMEN: Soft, nontender, and nondistended. EXTREMITIES: Without clubbing, cyanosis, or edema. CHUCK HAAS Nov 21, 2016 08:12
[2016-11-21] MEDS ORDERED: Sodium Polystyrene Sulfonate 15gm Powder ORAL ONE (08:15)
[2016-11-21] MEDS: Docusate 100mg cap ORAL SCH (09:55)
[2016-11-21] MEDS: cloNIDine 0.2mg Tab ORAL SCH ×4 (09:56→19:04)
[2016-11-21] MEDS: Multivitamin w/Minerals tab ORAL SCH (09:56)
[2016-11-21] MEDS: Aspirin Baby 81mg ORAL SCH (09:57)
[2016-11-21] MEDS: Dorzolamide 2% Btl BOTH EYES SCH ×3 (09:58→18:12)
[2016-11-21] MEDS: carBAMazepine 200mg tab ORAL SCH ×4 (09:59→19:05)
[2016-11-21] MEDS: Tamsulosin 0.4mg cap ORAL SCH (10:00)
[2016-11-21] MEDS: Heparin 5000 units/ml inj SUBQ SCH ×2 (10:03→21:00)
[2016-11-21] MEDS: Sodium Citrate 30ml ORAL SCH ×4 (10:18→18:12)
--- NOTE | 2016-11-21 12:40 | Progress Note ---
DATE: 11/19/2016 CARDIOLOGY PROGRESS Late entry for 11/19/2016. Subjective: The patient is more compliant, still confused, less frequent agitation, and continues on IV fluids. OBJECTIVE: Vital Signs: Blood pressure is 160/63, pulse 83, and respirations 20. NECK: Supple. LUNGS: Clear. CARDIAC: Regular. Normal S1 and S2 with a fourth heart sound. ABDOMEN: Soft. EXTREMITIES: No edema. Laboratory data: Sodium is 141, potassium 4.5, BUN 54, and creatinine 3.7. Albumin is 3.0. IMPRESSION: 1. Acute on chronic renal failure. 2. Chronic diastolic congestive heart failure. 3. Elevated natriuretic peptide likely due to renal disease. 4. Dementia with agitation. 5. Hypertensive heart disease with elevated blood pressure. 6. Mild protein-calorie malnutrition. 7. Sinus bradycardia, asymptomatic on beta-donnell therapy. PLAN: 1. Maintenance hydration. 2. Monitor cardiorenal parameters. 3. Titration of antihypertensive for bradyarrhythmias. 4. Continue beta-donnell with close observation of heart rate in view of potential for bradyarrhythmia. Artem Byers M.D. DR: Neto JOB#: [id number] CC:
--- NOTE | 2016-11-21 12:40 | Progress Note ---
DATE: 11/20/2016 CARDIOLOGY PROGRESS NOTE Subjective: The patient remains on IV fluids. Blood pressure parameters remain labile with elevations at times. No chest pain or shortness of breath. OBJECTIVE: Vital signs: Blood pressure is 183/88, pulse rate 69, and respirations 20. NECK: Supple. LUNGS: Clear. CARDIAC: Regular rate. Normal S1 and S2. ABDOMEN: Soft. EXTREMITIES: No edema. IMPRESSION: 1. Hypertensive urgency. 2. Hypertensive heart disease. 3. Acute on chronic diastolic congestive heart failure. 4. Acute on chronic renal failure. 5. Sinus bradycardia, on beta-blockers, resolves. 6. Dementia with psychosis and agitation. 7. Toxic encephalopathy. 8. Metabolic encephalopathy. PLAN: 1. Advance antihypertensive. 2. Adjust IV fluids. 3. Psychiatric followup. 4. Continue current level of support. Artem Byers M.D. DR: Neto JOB#: [id number] CC:
[2016-11-21 15:40] LABS: CALCIUM 7.9 mg/dL (8.6-10.2); CHLORIDE 106 mEQ/L (98-107); CREATININE 3.9 mg/dL (0.7-1.2); POTASSIUM 4.9 mEQ/L (3.4-4.9); SODIUM 144 mEQ/L (135-145)
[2016-11-21 16:25] LABS: ANION GAP 14 (5-15); CARBON DIOXIDE 24 mEQ/L (20-30); HEMOLYSIS 9
--- NOTE | 2016-11-21 16:33 | Nephrology Progress Note ---
Assessment/Plan Problem List: (1) Dehydration (2) CKD (chronic kidney disease) stage 5, GFR less than 15 ml/min (3) Epilepsy (4) Anemia in chronic kidney disease Plan serial lab, add clonidine for bp pulleed out iv but has had adequate rehydration Subjective ROS Limited/Unobtainable: Yes Objective Objective Last 24 Hour Vital Signs Date Time Temp Pulse Resp B/P (MAP) Pulse Ox O2 Delivery O2 Flow Rate FiO2 11/21/16 15:26 154/74 11/21/16 15:25 98.2 81 20 154/74 96 Room Air 11/21/16 12:00 98.3 69 21 111/53 99 Room Air 11/21/16 10:02 81 149/70 11/21/16 10:00 81 149/70 11/21/16 09:56 149/70 11/21/16 08:15 97.7 81 22 149/70 95 Room Air 11/21/16 05:21 183/92 11/21/16 05:19 183/92 11/21/16 04:00 97.6 78 20 117/55 95 Room Air 11/21/16 00:00 97.2 67 20 159/79 95 Room Air 11/20/16 21:52 172/81 11/20/16 20:37 172/81 11/20/16 20:00 96.4 76 20 172/81 100 Room Air Laboratory Tests 11/21/16 04:35: White Blood Count 4.7L, Red Blood Count 2.88L, Hemoglobin 9.6L, Hematocrit 30.2L , Mean Corpuscular Volume 105H, Mean Corpuscular Hemoglobin 33.3H, Mean Corpuscular Hemoglobin Concent 31.8L, Red Cell Distribution Width 12.4, Platelet Count 147L, Mean Platelet Volume 5.9L, Neutrophils (%) (Auto) 56.0, Lymphocytes (%) (Auto) 30.8, Monocytes (%) (Auto) 9.3, Eosinophils (%) (Auto) 2.7, Basophils (%) (Auto) 1.2, Sodium Level 144, Potassium Level 5.6H, Chloride Level 107, Carbon Dioxide Level 22, Anion Gap 15, Blood Urea Nitrogen 52H, Creatinine 3.8H, Estimat Glomerular Filtration Rate , Glucose Level 101, Calcium Level 8.0L, Total Bilirubin 0.2, Aspartate Amino Transf (AST/SGOT) 21, Alanine Aminotransferase (ALT/SGPT) 18, Alkaline Phosphatase 87, Total Protein 6.3L, Albumin 3.7, Globulin 2.6, Albumin/Globulin Ratio 1.4 11/21/16 15:10: Sodium Level 144, Potassium Level 4.9, Chloride Level 106, Carbon Dioxide Level 24, Anion Gap 14, Blood Urea Nitrogen 53H, Creatinine 3.9H, Estimat Glomerular Filtration Rate , Glucose Level 107H, Calcium Level 7.9L Height (Feet): 5 Height (Inches): 9.00 Weight (Pounds): 200 General Appearance: no apparent distress, confused EENT: other - poor vision Neck: normal alignment Cardiovascular: normal rate Respiratory/Chest: lungs clear Abdomen: soft Extremities: other - no edema XI FUENETS Nov 21, 2016 16:33
[2016-11-21] MEDS ORDERED: CARBAMAZEPINE200 MG ORAL (18:13)
[2016-11-21] MEDS ORDERED: CLONIDINE 0.2M0.2 MG ORAL (18:13)
--- NOTE | 2016-11-22 05:45 | Progress Note ---
DATE: 11/21/2016 CARDIOLOGY PROGRESS NOTE Subjective: The patient continues to have episodes of noncompliance with care. Blood pressure is labile at times ranging from 117/56 to 183/92. The patient has no shortness of breath or chest pain. OBJECTIVE: LUNGS: Clear. CARDIAC: Regular. Normal S1 and S2 with a fourth heart sound. EXTREMITIES: No edema. Laboratory Data: White count 4.7 and hemoglobin 9.6. Sodium 144, potassium 4.9, bicarbonate 24, BUN 53, and creatinine 3.9. IMPRESSION: 1. Hypertensive urgency. 2. Accelerated hypertension. 3. Dementia with agitation. 4. Acute on chronic kidney disease. 5. Anemia of chronic kidney disease. 6. Hypovolemia and dehydration, recovered. PLAN: 1. Additional antihypertensive therapy added today mainly clonidine. No additional IV fluid hydration. 2. Maintain adequate oral intake. 3. Kayexalate x1 for elevated potassium. 4. Monitor electrolytes and further titrate antihypertensive therapy as able. 5. Topical regimen with clonidine may be useful in view of noncompliance. Artem Byers M.D. DR: DENA JOB#: [id number] CC:
--- NOTE | 2016-11-22 16:04 | Discharge Summary ---
Discharge Summary Hospital Course Date of Admission Nov 15, 2016 at 21:27 Date of Discharge Nov 21, 2016 at 20:25 Admitting Diagnosis fever,abnormal labs HPI Elkin Jamison is a 81 year old male who was admitted on Nov 15, 2016 at 21:27 for Fever,Abnormal Labs Hospital Course [id number] Discharge Discharge Disposition Patient was discharged to SNF/Subacute Facility(03) Discharge Diagnoses: Olive Gamboa NP Nov 22, 2016 16:04
--- NOTE | 2016-11-23 08:45 | Discharge Summary 2 SIG ---
DATE OF ADMISSION: 11/15/2016 DATE OF DISCHARGE: 11/21/2016 CONSULTANTS: 1. Rory Falcon M.D. 2. Artem Byers M.D. 3. Rachel Payton M.D. Brief Hospital Course: The patient is an 81-year-old male with multiple medical problems including chronic kidney disease, hypertension, peripheral vascular disease, prostate CA, gastritis and glaucoma. He has history of diabetes and seizure disorder. He was transferred [facility] for complaints of acute on chronic renal failure. Laboratories at the alf facility showed creatinine of nearly 4. His baseline was around 2. According to the patient, he has been having diarrhea for the past three weeks. On evaluation at ED, repeat creatinine was still elevated at 3.5. In light of worsening renal insufficiency, he was admitted for further evaluation and care. He was also noted to be hypertensive with systolic blood pressure in the 200. Renal function was monitored. Renal ultrasound done showed medical renal disease. There was no hydronephrosis. The patient has chronic kidney disease stage 5 with GFR less than 15 mL/min. He was uncooperative, confused, agitated, and was difficult to continue with IV fluid hydration. He was diagnosed to have acute encephalopathy and was given Haldol 5 mg p.r.n. The patient was on risperidone and dosage was changed to 2 mg q.h.s. He was given amlodipine, clonidine and hydralazine for blood pressure control. He had episode of hyperkalemia. Potassium 5.6 and was given Kayexalate x1. He was less agitated, but remained confused. Oriented to self and place. He eventually pulled out his IV, but overall he got adequate rehydration. He was eventually discharged to SNF. FINAL DIAGNOSES: 1. Acute on chronic renal failure. 2. Chronic kidney disease stage 5. 3. Anemia. 4. Hypertensive urgency. 5. Accelerated hypertension. 6. Dementia with agitation. 7. Anemia of chronic kidney disease. 8. Hypokalemia and dehydration, recovered. 9. Seizure disorder. 10. Mild protein-calorie malnutrition. 11. Hypertensive heart disease with elevated blood pressure. 12. Chronic diastolic congestive heart failure. 13. Sinus bradycardia asymptomatic on beta-donnell therapy. Disposition: The patient was discharged to [facility]. DISCHARGE MEDICATIONS: Refer to medication list. Fausto Garay M.D. I have been assigned to dictate discharge summary on this account and I was not involved in the patient's management. Olive Gamboa N.P. DR: AMIRA JOB#: [id number] CC: ANTONIETA
== END 2016-11-21 20:25 | DRG 469 ==
LOC: EDBD 20:13 → EDBEDREQ 20:42 → EMR 20:55 → 4W 21:27 → EDBEDREQ 21:35 → 4E 11-17 09:07
DX: N17.9 Acute kidney failure, unspecified (principal); G93.41 Metabolic encephalopathy; I50.33 Acute on chronic diastolic (congestive) heart failure; I13.2 Hypertensive heart and chronic kidney disease with heart failure and with stage 5 chronic kidney disease, or end stage renal disease; E86.0 Dehydration; I16.0 Hypertensive urgency; N18.5 Chronic kidney disease, stage 5; G40.909 Epilepsy, unspecified, not intractable, without status epilepticus; I73.9 Peripheral vascular disease, unspecified; Z85.46 Personal history of malignant neoplasm of prostate; K29.70 Gastritis, unspecified, without bleeding; H40.9 Unspecified glaucoma; R45.1 Restlessness and agitation; E87.6 Hypokalemia; R00.1 Bradycardia, unspecified; R19.7 Diarrhea, unspecified; F20.9 Schizophrenia, unspecified; Z86.73 Personal history of transient ischemic attack (TIA), and cerebral infarction without residual deficits; E11.22 Type 2 diabetes mellitus with diabetic chronic kidney disease; F01.50 Vascular dementia, unspecified severity, without behavioral disturbance, psychotic disturbance, mood disturbance, and anxiety; F17.200 Nicotine dependence, unspecified, uncomplicated; N40.0 Benign prostatic hyperplasia without lower urinary tract symptoms; D63.1 Anemia in chronic kidney disease; R41.0 Disorientation, unspecified; R50.9 Fever, unspecified; E44.1 Mild protein-calorie malnutrition
CPT/HCPCS: 36415; 71010; 76775; 80048; 80053; 80156; 82550; 82553; 83880; 84484; 85025; 87081; 93005; 99285